=== PATIENT | male | born 1985 | race Caucasian/White ===

== ENCOUNTER 2020-07-19 09:51 | Outpatient (REF) | payer OTHER, SELFPAY ==
--- NOTE | 2020-07-19 09:55 | EMG_ITS ---
HISTORY OF PRESENT ILLNESS: This is a 35-year-old man with a history of bilateral hand pain and numbness with the right being worse than the left for several years. He is on no medications. PHYSICAL EXAMINATION: On examination, he is alert and oriented with normal intellectual functions. Cranial nerves II through XII are normal. Muscle tone and strength are normal in all 4 extremities. No Tinel or Phalen sign. IMPRESSION: Carpal tunnel syndrome. Nerve conduction EMG study: Moderate carpal tunnel syndrome bilaterally, slightly worse on the right. Mild ulnar nerve entrapment in the Guyon's canal on the left. Normal EMG of the right C5 through T1 innervated muscles. MD GABRIELA Marshall/LUPE / [id number]
== END 2020-07-19 09:52 | disposition home or self-care (01) ==
LOC: HO.NEURO 09:51
PROVIDERS: PCP Nurse Practitioner Family; Visit Provider Nurse Practitioner Family
DX: M25.531 Pain in right wrist (principal)
CPT/HCPCS: 95860; 95886; 95913

== ENCOUNTER 2022-09-20 08:59 | Outpatient (REF) | payer OTHER, SELFPAY ==
[2022-09-20 11:31] LABS: MANUAL DIFF FLAG NO
[2022-09-20 11:36] LABS: Appearance Urine Clear; Color Urine Yellow; Glucose Urine UA Negative (Negative); Leukocyte Esterase Urine Negative (Negative); Nitrite Urine Negative (Negative); Urine Blood Negative (Negative); Urine Ketones Negative (Negative); Urine Protein Negative (Neg-Trace)
[2022-09-20 11:46] LABS: Basophils Percent Auto 0.3 % (0-2); Eosinophils Percent Auto 0.5 % (0-4); Hemoglobin 15.4 g/dl (14.0-18.0); Imm Gran Abs Auto 0.01 X10*3/uL (0.00-0.03); Imm Gran Pct Auto 0.2 % (0.0-0.4); Lymphocytes Absolute Auto 1.9 X10*3/uL (1.2-4.9); Lymphocytes Percent Auto 33.4 % (20-40); Mean Corpuscular HGB Conc 34.2 g/dl (31.0-36.0); Mean Corpuscular Hemoglobin 29.2 pg (27.0-33.0); Mean Corpuscular Volume 85.2 fL (80.0-98.0); Mean Platelet Volume 10.9 fL (9.4-12.4); Monocytes Absolute Auto 0.4 X10*3/uL (0.1-1.2); Monocytes Percent Auto 6.6 % (2-11); Neutrophils Absolute Auto 3.4 x10*3/uL (2.0-8.3); Platelet Count 214 X10*3/uL (160-400); Red Blood Count 5.28 X10*6/uL (4.60-5.80); Red Cell Distribution Width 12.3 % (11.0-16.0); White Blood Count 5.8 X10*3/uL (4.8-10.8)
[2022-09-20 12:07] LABS: Alanine Aminotransferase 48 U/L (0-40); Albumin Level 4.5 g/dL (3.5-5.0); Alkaline Phosphatase 71 U/L (39-117); Anion Gap 11 (12-20); Aspartate Amino Transferase 28 U/L (5-37); Bilirubin Total 0.8 mg/dL (0.0-1.0); Blood Urea Nitrogen 19 mg/dL (9-16); Calcium 9.5 mg/dL (8.4-10.2); Carbon Dioxide 27 mmol/L (22-29); Chloride 104 mmol/L (96-108); Cholesterol 242 mg/dL; Estimated Glomerular Filt Rate > 60; Glucose Fasting 97 mg/dL (60-99); HDL Cholesterol 38 mg/dL; LDL Cholesterol Calculated 182 mg/dl; Potassium 4.6 mmol/L (3.3-5.1); Sodium 137 mmol/L (135-145); Total Protein 7.4 g/dL (6.5-8.0); Triglycerides 112 mg/dL
[2022-09-20 12:31] LABS: TSH reflex Free T4 1.92 uIU/mL (0.32-4.0)
== END 2022-09-20 09:00 | disposition home or self-care (01) ==
LOC: HO.HMGCLDS 08:59
PROVIDERS: PCP Nurse Practitioner Family; Visit Provider Nurse Practitioner Family
DX: I10 Essential (primary) hypertension (principal)
CPT/HCPCS: 36415; 80053; 80061; 81003; 84443; 85025

== ENCOUNTER 2022-10-14 08:17 | Outpatient (REF) | payer OTHER, SELFPAY ==
--- NOTE | ~2022-10-14 | US_ITS ---
EXAMINATION: US ABDOMEN COMPLETE CLINICAL INFORMATION: Abnormal levels of other serum enzymes. COMPARISON: None TECHNIQUE: Real-time imaging of the abdominal viscera. FINDINGS: PANCREAS: The pancreas is obscured by overlying gas. ABDOMINAL AORTA: The proximal, mid, and distal segments are normal in caliber. INFERIOR VENA CAVA: Visualized portions are normal. LIVER: The liver is normal in size. The liver contour is normal. The liver shows increased echogenicity. No focal hepatic lesion. There is no intrahepatic biliary duct dilatation seen. GALLBLADDER: Gallbladder wall thickness is 0.32 cm. The gallbladder is physiologically distended without evidence of stones, sludge, polyps, or pericholecystic fluid. COMMON BILE DUCT: Normal in caliber measuring 0.4 cm in diameter. RIGHT KIDNEY: Normal. No hydronephrosis. No renal calculi or focal parenchymal lesions. The kidney measures 11.5 cm in maximum dimension. LEFT KIDNEY: Normal. No hydronephrosis. No renal calculi or focal parenchymal lesions. The kidney measures 12.3 cm in maximum dimension. SPLEEN: Normal. The spleen measures 11.2 cm in maximum dimension. FREE FLUID: None. US/US abdomen complete IMPRESSION: Mild hepatic fatty infiltration. No focal lesion seen. The rest of the abdominal ultrasound is unremarkable.
== END 2022-10-14 08:18 | disposition home or self-care (01) ==
LOC: HO.HMGCX 08:17
PROVIDERS: PCP Nurse Practitioner Family; Visit Provider Nurse Practitioner Family
DX: R74.8 Abnormal levels of other serum enzymes (principal)
CPT/HCPCS: 76700

== ENCOUNTER 2023-02-19 08:01 | Outpatient (AMB) | payer OTHER, SELFPAY ==
--- NOTE | 2023-02-19 08:07 | A.OFFVIS_ITS ---
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 Patient complains of numbness while driving, fishing and prolong holding onto items. At times numbness disturbs his sleep. Hx of Right hand CTR January 2021. Patient would like to discuss surgery. Last injection was in 2015 and lasted 2-3 months. 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 He has a hx of right Carpal tunnel release in 2020 at an outside location, with good resolution of his symptoms. He complains of numbness in the left hand median nerve distribution. Symptoms intermittent, but daily, worse with activities such as driving or holding objects, and worse at night. He says he gets some intermittent numbness in the small finger of his left hand, but this is only occasional. His NCS from 2019 showed some ulnar nerve entrapment but no Cubital tunnel syndrome. 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 [facility] Medical History Carpal tunnel syndrome on both sides Cubital tunnel syndrome on left Hypertension Insomnia Major depressive disorder Surgical History History of elbow surgery Family History Father Diabetes mellitus Mother Thyroid disorder Social History Housing: House Alcohol intake: current Alcohol intake frequency: a few times a week Alcohol type: wine Patient Tobacco Use Status: Never used Tobacco e-Cigarette/Vaping Use: Never Used Second Hand Smoke Exposure: No service: Yes Current occupational status: employed Current occupation: [employer] / [employer] hand Current occupational exposures/hazards: Yes Cognitive needs: No Hearing needs: No Vision needs: Yes Review of Systems Const All systems reviewed & are unremarkable except as noted in HPI and below Physical Exam Vital Signs: BMI result Body Mass Index 32.8 Const General: cooperative, healthy appearing and no acute distress Orientation/consciousness: patient oriented x3 HEENT Head: Yes normocephalic and Yes atraumatic Eyes EOM: EOMs intact bilaterally Resp Effort & Inspection: normal respiratory effort and able to speak in complete sentences Cardio Jugular venous distension: no JVD Skin General skin exam: turgor normal Rashes: no rashes Neuro General: patient oriented x3 Extrem Other: Evaluation of Upper Extremity: The patient is alert, oriented, and in no acute distress Neuro: Median, Ulnar, Radial nerves motor and sensory intact and sensation is normal to the tips of all digits No thenar or intrinsic wasting Good APB muscle belly firing and good finger cross Vascular: Cap refill brisk ROM: He can make a fist and extend all his digits Skin: No lacerations or abrasions. General: No Ecchymosis. No Erythema or evidence of infection. Nerve Conduction Study: IMPRESSION:? Moderate carpal tunnel syndrome bilaterally, slightly worse on the right. ? Mild ulnar nerve entrapment in the Guyon's canal on the left. ? Normal EMG of the right C5 through T1 innervated muscles. Shabnam Nick MD 07/19/2020 Psych Appearance: grossly normal Affect: normal affect Attitude: cooperative Assessment & Plan Assessment & Plan (1) Carpal tunnel syndrome of left wrist: Code(s): G56.02 - Carpal tunnel syndrome, left upper limb Plan Assessment & Plan: 1. Left carpal tunnel syndrome, moderate Symptoms intermittent, but daily, worse with activity & at night I educated him about this condition I discussed treatment options The patient would like to proceed with surgery The risks and benefits of operative treatment were discussed with the patient and the patient wishes to proceed with surgery. These risks include, but are not limited to risk of damage to blood vessels, nerves, tendons, infection, recurrence, incomplete relief of preoperative symptoms, persistent pain, possible need for further surgery and the risks associated with regional blocks and anesthesia. The plan is to take the patient to the operating room sometime in the next few weeks for the following procedures: 1. Left carpal tunnel release, under local All of the preoperative paperwork including the consent was filled out today. All the patient's questions were answered. The patient understands that they will be contacted by our planner/scheduler soon to schedule this procedure He denies Diabetes, blood thinners, asthma, heart, lung, kidney issues If he does develop more problems with numbness and tingling in his left small finger I would likely consider a new nerve conduction study. 2. Right carpal tunnel syndrome, S/P release DOS: 2020 at an outside location With good resolution of his symptoms and normal sensation Scribed for Allie Alaniz MD by Eleazar Ponce, medical device sales representative, on 02/19/23 at 8:30 AM, EST. Coding Level of Care Code New Pt Level 4 (29889) Diagnoses Carpal tunnel syndrome of left wrist G56.02
[2023-02-19 08:12] VITALS: BMI 32.8
== END 2023-02-19 08:54 | disposition home or self-care (01) ==
PROVIDERS: PCP Nurse Practitioner Family; Visit Provider Orthopaedic Surgery
DX: G56.02 Carpal tunnel syndrome, left upper limb (principal)
CPT/HCPCS: 99204

== ENCOUNTER → 2023-02-19 08:01 | Outpatient (BNVA) | payer OTHER, SELFPAY | PROVIDERS: PCP Nurse Practitioner Family; Visit Provider Orthopaedic Surgery | DX: G56.03 Carpal tunnel syndrome, bilateral upper limbs (principal); G56.22 Lesion of ulnar nerve, left upper limb | CPT/HCPCS: 99202 ==

== ENCOUNTER 2023-03-31 07:48 | Day surgery (SDC) | payer OTHER, SELFPAY ==
[2023-03-31 08:05] VITALS: BP 150/84; PULSE 70; RESP 16; TEMP 36.6; O2SAT 98
[2023-03-31 08:11] VITALS: BMI 32.8
--- NOTE | 2023-03-31 09:50 | W.PM.OPN ---
Operative Note Operative Note Date of Service: 03/31/23 Narrative: Preop diagnosis: 1. left Carpal tunnel syndrome Postop diagnosis: same Procedure: 1. left Carpal tunnel release Surgeon: Allie Alaniz MD Anesthesia: local block using 1% lidocaine with epinephrine Findings: Thickened transverse carpal ligament. EBL: Less than 5 mL Specimens: None Complications: None Disposition: Brought to recovery room in stable condition Plan: Follow-up for 10-14 days for wound check and suture removal Indications: The patient is 38 years old, with left carpal tunnel syndrome that has been unresponsive to nonoperative management. The risks and benefits of operative treatment including but not limited to risk of damage to blood vessels, nerves, tendons, infection, persistent pain, persistent symptoms, or possible need for additional surgery were discussed with the patient and the patient wishes to proceed with surgery. Procedure: Once consent was obtained a local block was performed using a combination of 1% lidocaine with epinephrine. The patient was then brought back to the operating suite and placed on the operative table in supine position. The left upper extremity was prepped and draped in a standard surgical fashion. Once assured that we had a good block, a 2.0 cm longitudinal incision was made centered over the carpal tunnel. The incision was made through the skin to the subcutaneous tissues using a #15 blade. Dissection was made down to the level of the transverse carpal ligament with care being taken to protect the palmar cutaneous nerve. Once the transverse carpal ligament was clearly visualized, a longitudinal incision was made in the transverse carpal ligament 1st using a #15 blade, then using tenotomy scissors under direct visualization. Care was taken to look for and protect the motor branch of the median nerve when seen in this area. Once satisfied with our carpal tunnel release the wound was copiously irrigated with normal saline and hemostasis was obtained with a brief period of local pressure. The skin edges were reapproximated with some 5.0 nylon suture material and a sterile dressing was applied. The patient appears to have tolerated the procedure well and with no complications. All digits were well vascularized at the conclusion of the case.
--- NOTE | 2023-03-31 10:58 | MHC.SHP ---
Pre-Procedural Eval Section A Date of Service: 03/31/23 The patient is an INPATIENT: No Changes since office visit: No Cold of Flu in the past 2 weeks, No New Medical Problems, No Changes in Medication and No Patient answered all questions The History & Physical has been completed within 30 days and I have reviewed it.: Yes Section B Chief Complaint: Carpal tunnel syndrome, left upper limb Allergies: Allergies Allergy/AdvReac Type Severity Reaction Status Date / Time No Known Allergies Allergy Verified 03/31/23 08:03 Plan I have reviewed the history and physical and performed a pertinent physical examination on my patient. No changes have occurred unless specified. Time Spent With Patient Time: Total time managing care of this patient today ____ minutes.
== END 2023-03-31 11:19 | disposition home or self-care (01) ==
PROVIDERS: PCP Nurse Practitioner Family; Visit Provider Orthopaedic Surgery
PROC: (CPT 64721; principal; 2023-03-31 08:50)
DX: G56.02 Carpal tunnel syndrome, left upper limb (principal); R20.0 Anesthesia of skin; I10 Essential (primary) hypertension; F32.A Depression, unspecified; Z98.890 Other specified postprocedural states
CPT/HCPCS: 64721; J0171

== ENCOUNTER → 2023-03-31 07:48 | Outpatient (BNV) | payer OTHER, SELFPAY | PROVIDERS: PCP Nurse Practitioner Family; Visit Provider Orthopaedic Surgery | DX: G56.02 Carpal tunnel syndrome, left upper limb (principal) | CPT/HCPCS: 64721 ==

== ENCOUNTER 2023-04-15 14:29 | Outpatient (AMB) | payer OTHER, SELFPAY ==
--- NOTE | 2023-04-15 14:35 | MHC.OFFVIS ---
Intake Vital Signs 04/15/23 14:36 Height 5 ft 11 in Weight 235 lb BMI 32.8 Intake Visit Reasons: PO LT CTR 03/31/23AR Intake Note: Ben 38yr old male presents today for his P/O visit for is left CTR from 03/31/[address] Alaniz. States he is having mild numbness in his pinky. States he is able to sleep a better at night but some discomfort due to sutures. Sutures removed and steri strips applied. Allergies No Known Allergies Allergy (Verified 04/15/23 14:39) HPI PO LT CTR 03/31/23AR HPI Details Ben is a 38 year old right hand dominant man who presents S/P left carpal tunnel release, DOS: 03/31/23. He says he has some soreness about his incision site and this was causing some difficulty in sleeping. His sensation in the median nerve distribution has improved and is now normal, and he has good resolution of his nighttime symptoms. He has had a couple of episodes of left small finger numbness and tingling at night. He is not sure if the small finger was getting numb before surgery, as his whole hand felt like it was getting numb. 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 [facility] Medical History (Updated 02/19/23 @ 08:19 by Eleazar Ponce) Carpal tunnel syndrome on both sides Cubital tunnel syndrome on left Hypertension Insomnia Major depressive disorder Surgical History (Updated 03/31/23 @ 08:02 by Eleonora Murphy) H/O wrist surgery History of elbow surgery Family History Father Diabetes mellitus Mother Thyroid disorder Social History Housing: House Alcohol intake: current Alcohol intake frequency: a few times a month Alcohol type: wine Patient Tobacco Use Status: Never used Tobacco e-Cigarette/Vaping Use: Never Used Second Hand Smoke Exposure: No service: Yes Current occupational status: employed Current occupation: [employer] / rt hand Current occupational exposures/hazards: Yes Cognitive needs: No Hearing needs: No Vision needs: Yes Review of Systems Const All systems reviewed & are unremarkable except as noted in HPI and below Physical Exam Vital Signs: BMI result Body Mass Index 32.8 Const General: no acute distress and alert Orientation/consciousness: patient oriented x3 Neuro General: patient oriented x3 Extrem Other: The patient was alert oriented and in no acute distress The incision is healing well with no erythema drainage or evidence of infection. Sutures removed and Steri-Strips applied He can make a fist and extend all his digits Good ABduction & ADduction Sensation is normal in the median nerve distribution. Normal sensation to the small finger as well. Cap refill is brisk Nerve Conduction Study: IMPRESSION:? Moderate carpal tunnel syndrome bilaterally, slightly worse on the right. ? Mild ulnar nerve entrapment in the Guyon's canal on the left. ? Normal EMG of the right C5 through T1 innervated muscles. Shabnam Nick MD 07/19/2020 Psych Appearance: grossly normal Affect: normal affect Attitude: cooperative Assessment & Plan Assessment & Plan (1) Carpal tunnel syndrome of left wrist: Code(s): G56.02 - Carpal tunnel syndrome, left upper limb Plan Assessment & Plan: 1. Left carpal tunnel syndrome, S/P release DOS: 03/31/23 Pre-operative symptoms intermittent, but daily, worse with activity & at night Now with improving but not yet normal sensation, and good resolution of his nighttime symptoms The patient appears to be doing well post-operatively I educated him about the post-operative course I discussed activity modifications, he is to lift nothing heavier than a cellphone for the next two weeks He will perform gentle ROM exercises at home He should avoid any underwater activities for the next 5 days He should gently massage about the incision site to reduce the risk of hypersensitivity He was given a note for work restricting him to light duty, with a 2lb weight limit for the next 4 weeks He has to perform his physical fitness test 40 days after his current work restrictions finish. He can follow up prn 2. Left small finger numbness Intermittent and occasional, most occurs at night Mild ulnar nerve entrapment in Guyon's canal seen on NCS This may be exacerbated by some post-operative swelling If he continues to have numbness in the next 6-8 weeks he can follow up to discuss further evaluation and treatment 3. Right carpal tunnel syndrome, S/P release DOS: 2020 at an outside location With good resolution of his symptoms and normal sensation Scribed for Allie Alaniz MD by Eleazar Lubanszky, medical radiation therapist, on 04/15/23 at 2:45 PM, EST. Coding Level of Care Code Global (74032) Diagnoses Carpal tunnel syndrome of left wrist G56.02
[2023-04-15 14:36] VITALS: BMI 32.8
== END 2023-04-15 14:54 | disposition home or self-care (01) ==
PROVIDERS: PCP Nurse Practitioner Family; Visit Provider Orthopaedic Surgery
DX: G56.02 Carpal tunnel syndrome, left upper limb (principal)
CPT/HCPCS: 99024

== ENCOUNTER → 2023-04-15 14:29 | Outpatient (BNVA) | payer OTHER, SELFPAY | PROVIDERS: PCP Nurse Practitioner Family; Visit Provider Orthopaedic Surgery ==

== ENCOUNTER 2023-08-20 06:52 | Outpatient (REF) | payer OTHER, SELFPAY ==
[2023-08-20 11:34] LABS: MANUAL DIFF FLAG NO
[2023-08-20 11:36] LABS: Appearance Urine Clear; Color Urine Yellow; Glucose Urine UA Negative (Negative); Leukocyte Esterase Urine Negative (Negative); Nitrite Urine Negative (Negative); PH 6.5 (5.0-9.0); Urine Blood Negative (Negative); Urine Ketones Negative (Negative); Urine Protein Negative (Neg-Trace)
[2023-08-20 11:45] LABS: Basophils Percent Auto 0.4 % (0-2); Eosinophils Percent Auto 0.6 % (0-4); Hematocrit 44.1 % (42.0-52.0); Hemoglobin 14.9 g/dl (14.0-18.0); Imm Gran Abs Auto 0.02 X10*3/uL (0.00-0.03); Imm Gran Pct Auto 0.4 % (0.0-0.4); Lymphocytes Absolute Auto 2.2 X10*3/uL (1.2-4.9); Lymphocytes Percent Auto 40.8 % (20-40); Mean Corpuscular HGB Conc 33.8 g/dl (31.0-36.0); Mean Corpuscular Hemoglobin 29.2 pg (27.0-33.0); Mean Corpuscular Volume 86.3 fL (80.0-98.0); Mean Platelet Volume 10.2 fL (9.4-12.4); Monocytes Absolute Auto 0.4 X10*3/uL (0.1-1.2); Monocytes Percent Auto 6.5 % (2-11); Neutrophils Absolute Auto 2.8 x10*3/uL (2.0-8.3); Neutrophils Percent Auto 51.3 % (45-73); Platelet Count 216 X10*3/uL (160-400); Red Blood Count 5.11 X10*6/uL (4.60-5.80); Red Cell Distribution Width 12.7 % (11.0-16.0); White Blood Count 5.4 X10*3/uL (4.8-10.8)
[2023-08-20 12:14] LABS: Alanine Aminotransferase 85 U/L (0-40); Albumin Level 4.4 g/dL (3.5-5.0); Alkaline Phosphatase 71 U/L (39-117); Anion Gap 14 (12-20); Aspartate Amino Transferase 44 U/L (5-37); Bilirubin Total 0.3 mg/dL (0.0-1.0); Blood Urea Nitrogen 16 mg/dL (9-16); Calcium 9.7 mg/dL (8.4-10.2); Carbon Dioxide 26 mmol/L (22-29); Chloride 104 mmol/L (96-108); Cholesterol 265 mg/dL (<200); Estimated Glomerular Filt Rate > 60; Glucose Fasting 109 mg/dL (60-99); HDL Cholesterol 39 mg/dL (>40); LDL Cholesterol Calculated 195 mg/dL (<100); Potassium 4.9 mmol/L (3.3-5.1); Sodium 139 mmol/L (135-145); Total Protein 7.8 g/dL (6.5-8.0); Triglycerides 157 mg/dL (<150)
[2023-08-20 12:18] LABS: TSH reflex Free T4 1.75 uIU/mL (0.32-4.0)
== END 2023-08-20 06:53 | disposition home or self-care (01) ==
LOC: HO.HMGCLDS 06:52
PROVIDERS: PCP Nurse Practitioner Family; Visit Provider Nurse Practitioner Family
DX: I10 Essential (primary) hypertension (principal)
CPT/HCPCS: 36415; 80053; 80061; 81003; 84443; 85025

== ENCOUNTER 2023-08-21 08:59 | Outpatient (AMB) | payer OTHER, SELFPAY ==
--- NOTE | 2023-08-21 09:02 | MHC.PC.OV ---
Vital Signs 08/21/23 09:04 Height 5 ft 11 in Weight 246 lb BMI 34.3 BP 120/74 Blood Pressure Location Rt brachial Position Sitting Pulse 83 Pulse Source Pulse Oximeter Pulse Oximetry (%) 98 Oxygen Delivery Method Room Air Intake Visit Reasons: PE Intake Note: Patient here for physical exam. no new issues or concerns. Pt had labs done on 08/20/23. Allergies No Known Allergies Allergy (Verified 08/21/23 09:05) Medication List - Last Reconciled 08/21/23 by KADEN Galan amlodipine 2.5 mg PO DAILY atorvastatin 20 mg PO BEDTIME lisinopril 20 mg PO DAILY Tobacco use date assessed: 08/21/23 Dental Screening Dental Screen Date: 08/21/23 Did you have a dental visit in the last 12 months?: Yes Did you have a dental problem in the last 6 months where you did not have access to dental care?: No Was dental information given to patient?: Patient has dentist HPI PE HPI Details Pt is here for a PE. Labs were already performed. Pt's lipids were elevated. Will start atorvastatin 20mg. Will repeat labs in 2 months. [facility] Medical History Cubital tunnel syndrome on left Carpal tunnel syndrome on both sides Major depressive disorder Insomnia Hypertension Surgical History H/O wrist surgery History of elbow surgery Family History Father Diabetes mellitus Mother Thyroid disorder Social History Housing: House Alcohol intake: current Alcohol intake frequency: a few times a month Alcohol type: wine Patient Tobacco Use Status: Never used Tobacco e-Cigarette/Vaping Use: Never Used Second Hand Smoke Exposure: No service: Yes Current occupational status: employed Current occupation: [employer] / [employer] hand Current occupational exposures/hazards: Yes Cognitive needs: No Hearing needs: No Vision needs: Yes Questionnaire PHQ-9 Over the last 2 weeks, how often have you been bothered by any of the following problems? 1. Little interest or pleasure in doing things: not at all 2. Feeling down, depressed, or hopeless: not at all 3. Trouble falling or staying asleep, or sleeping too much: not at all 4. Feeling tired or having little energy: nearly every day 5. Poor appetite or overeating: not at all 6. Feeling bad about yourself - or that you are a failure or have let yourself or your family down: not at all 7. Trouble concentrating on things, such as reading the newspaper or watching television: not at all 8. Moving or speaking so slowly that other people could have noticed. Or the opposite - being so fidgety or restless that you have been moving around a lot more than usual: not at all 9. Thoughts that you would be better off or of hurting yourself in some way: not at all Total score: 3 Depression Screening Interpretation: Negative Depression Screening Done: Yes 47812 - PHQ-9 Billing: Yes Source: Developed by Drs. Ben Ospina, Leanna Siddiqi, Nic Batista and colleagues, with an educational jolynn from [employer]. Thrive Questionnaire Date Thrive assessed: 08/21/23 I am a: Patient What is your living situation today?: I have a steady place to live Within the past 12 months, did the food you bought not last and you didn't have the money to get more?: Never true Within the past 12 months, did you worry whether your food would run out before you got money to buy more?: Never true Do you have trouble paying for medicines?: No Do you have trouble getting transportation to medical appointments?: No Do you have trouble paying your heating and electricity bill?: No Do you have trouble taking care of your child, family member or friend?: No Do you have trouble with day-to-day activities such as bathing, preparing meals, shopping, managing finances, etc.?: No Are you currently unemployed and looking for a job?: No Are you interested in more education?: No AUDIT C Alcohol Use Questionnaire (AUDIT-C) 1. How often do you have a drink containing alcohol?: 2-4 times a month 2. How many drinks containing alcohol do you have on a typical day when you are drinking?: 1 or 2 3. How often do you have six or more drinks on one occasion?: Never Total Score: 2 Score Reviewed/Action Taken: No DEMETRICE-7 AMB Questionnaire DEMETRICE-7 Date DEMETRICE - 7 assessed: 08/21/23 Feeling nervous, anxious, or on edge: 0 = Not at all Not being able to stop or control worryin = Not at all Worrying too much about different things: 0 = Not at all Trouble relaxin = Several days Being so restless that it is hard to sit still: 1 = Several days Becoming easily annoyed or irritable: 1 = Several days Feeling afraid as if something awful might happen: 0 = Not at all Total DEMETRICE-7 score (0-4 normal; 5-9 mild; 10-14 moderate; 15-21 severe): 3 Source: Developed by Drs. Ben Ospina, Leanna Siddiqi, Nic Batista and colleagues, with an educational jolynn from [employer]. DEMETRICE-7 Assessment Billing DEMETRICE-7 Assessment Tool: DEMETRICE-7 Assessment 94362 Review of Systems Const Denies chills and Denies fever(s) Eyes Denies blurry vision ENT Denies vertigo, Denies dizziness and Denies sore throat Card Denies chest pain at rest, Denies chest pain with activity, Denies diaphoresis, Denies dyspnea and Denies dyspnea on exertion Resp Denies cough, Denies dyspnea, Denies dyspnea on exertion and Denies wheezing GI Denies abdominal pain, Denies melena, Denies hematochezia, Denies constipation, Denies diarrhea and Denies loose stools Denies hematuria Musc Denies numbness and Denies tingling Skin/Breast Denies lesions Neuro Denies vertigo, Denies dizziness, Denies numbness and Denies tingling Psych Denies anxiety, Denies depression, Denies homicidal ideation, Denies suicidal ideation and Denies other (substance abuse) Aller/Immun Denies wheezing Physical exam (Primary Care) Vital Signs: Last Vital Signs Pulse 83 08/21/23 09:04 BP 120/74 08/21/23 09:04 Pulse Ox 98 08/21/23 09:04 Oxygen Delivery Method Room Air 08/21/23 09:04 BMI result Body Mass Index 34.3 Tobacco/Smoking Status: Tobacco use Status Tobacco use date assessed 08/21/23 08/21/23 09:09 Patient Tobacco Use Status Never used Tobacco 08/21/23 09:06 e-Cigarette/Vaping Use Never Used 08/21/23 09:06 Depression Screening Interpretation: Negative Const General: cooperative Nutritional Appearance: obese Orientation/consciousness: patient oriented x3 HENMT Head: Yes normal to inspection, Yes normocephalic and Yes atraumatic Ears: TM's normal bilaterally Eyes General: appearance normal, both eyes and all related structures Alignment and Position: alignment normal and position normal Neck Neck: Yes normal visual inspection and Yes no lymphadenopathy Thyroid: Thyroid normal Resp Effort & Inspection: normal respiratory effort Auscultation: clear to auscultation bilaterally Cardio Rate: regular rate Rhythm: regular rhythm Heart sounds: S1 normal heart sound present, S2 normal heart sound present and no murmurs GI Palpation (GI): Soft to palpation and nontender Auscultation: normal bowel sounds Male General Exam: Yes normal external exam Penis: normal penis Scrotum: scrotum normal, testes descended bilaterally and no inguinal hernias Testes: no testicular mass Skin Rashes: no rashes Neuro General: patient oriented x3, moves all extremities, no focal motor deficits and deep tendon reflexes 2+ bilaterally Romberg Test: Negative Psych Appearance: grossly normal Mental Status: mental status grossly normal Speech and movement: Normal speech and movement present Affect: normal affect Attitude: cooperative Thought process: Normal thought process present Thought content: Normal thought content present Insight: Good insight present (Psych) Judgement: Good judgement present (Psych) Assessment and Plan Assessment & Plan (1) Dyslipidemia: Code(s): E78.5 - Hyperlipidemia, unspecified Plan: Starting atorvastatin, will repeat labs in 2 months (2) Physical exam: Code(s): Z00.00 - Encounter for general adult medical examination without abnormal findings Plan The patient agreed to the use of a medical services coordinator for this encounter. Scribed for KADEN Em by Kiki Carreon medical services coordinator, on 08/21/2023 at 09:15 EST. Medications: New atorvastatin 20 mg PO BEDTIME 90 tabs 2RF Coding Level of Care Code Est Pt Prev Care 18-39y(22183) Diagnoses Dyslipidemia E78.5 Physical exam Z00.00 Additional Codes DEMETRICE-7 Assessment Billing - DEMETRICE-7 Assessment Tool: DEMETRICE-7 Assessment 43914 ([id number])
[2023-08-21 09:04] VITALS: BP 120/74; PULSE 83; O2SAT 98; BMI 34.3
== END 2023-08-21 09:36 | disposition home or self-care (01) ==
PROVIDERS: PCP Nurse Practitioner Family; Visit Provider Nurse Practitioner Family
DX: E78.5 Hyperlipidemia, unspecified (principal); Z00.00 Encounter for general adult medical examination without abnormal findings
CPT/HCPCS: 99395

== ENCOUNTER 2025-04-08 08:30 | Outpatient (AMB) | payer OTHER, SELFPAY ==
[2025-04-08 08:48] VITALS: BP 124/76; PULSE 76; TEMP 36.7; O2SAT 98; BMI 32.1
--- NOTE | 2025-04-08 08:48 | MHC.OFFWIV ---
Intake Vital Signs 04/08/25 08:48 Height 5 ft 11 in Weight 230 lb BMI 32.1 BP 124/76 Blood Pressure Location Lt brachial Position Sitting Pulse 76 Pulse Source Pulse Oximeter Temp 98.0 F Temp Source Oral Pulse Oximetry (%) 98 Oxygen Delivery Method Room Air Intake Visit Reasons: ep bee sting on ankle/swollen and having reaction Intake Note: pt presents with right foot and ankle swelling, pain and itchiness after bee stings 2 days ago Patient Tobacco Use Status: Never used Tobacco Allergies No Known Allergies Allergy (Verified 04/08/25 08:50) Do you need a note to return to daycare/school/sports/work: No HPI HPI Comments History of Present Illness Details History of Present Illness - The patient is a 40-year-old male presenting with a bee sting reaction on his right foot. - The incident occurred approximately 48 hours prior to the visit when the patient accidentally stepped near a bee nest and was stung by two or three bees. - Historically, the patient does not react to bee stings, but this time experienced unusual symptoms. - Symptoms included a sensation of ears feeling funny, rory to being underwater, and a possible swollen tongue, though no respiratory distress was noted. - The patient self-administered Benadryl, which alleviated symptoms within 15 minutes. - The patient has been taking Benadryl consistently since the incident. - no trouble breathing reported, no feeling of throat closing or itching in the throat. - Pt has mult family members with bee allergy, is questioning how to be tested. Physical Exam General: Cooperative, healthy appearing, comfortable, no acute distress and well developed Orientation: Patient oriented x3 Limitations: No limitations Head: Normal to inspection Ears: Hearing grossly normal bilaterally, but patient reported ears felt funny and like underwater after bee sting Nose: Normal External nose present Face and sinus: Normal facial exam Eyes: Appearance normal, both eyes and all related structures Neck: Normal visual inspection and Yes full ROM, patient reported some neck symptoms after bee sting Respiratory: Normal respiratory effort and able to speak in complete sentences, Skin: right foot with edema,no erythema, no warmth, full ROM, NVI, pinpoint erythema on medial calcaneous. Neuro: Patient oriented x3 Extremities: Normal to inspection [facility] Medical History Cubital tunnel syndrome on left Carpal tunnel syndrome on both sides Major depressive disorder Insomnia Hypertension Surgical History H/O wrist surgery History of elbow surgery Family History Father Diabetes mellitus Mother Thyroid disorder Social History Housing: House Alcohol intake: current Alcohol intake frequency: a few times a month Alcohol type: wine Patient Tobacco Use Status: Never used Tobacco e-Cigarette/Vaping Use: Never Used Second Hand Smoke Exposure: No service: Yes Current occupational status: employed Current occupation: [employer] / [employer] Current occupational exposures/hazards: Yes Cognitive needs: No Hearing needs: No Vision needs: Yes Review of Systems Const All systems reviewed & are unremarkable except as noted in HPI and below Physical Exam Vital Signs: Last Vital Signs Temp 98.0 F 04/08/25 08:48 Pulse 76 04/08/25 08:48 BP 124/76 04/08/25 08:48 Pulse Ox 98 04/08/25 08:48 Oxygen Delivery Method Room Air 04/08/25 08:48 BMI result Body Mass Index 32.1 Assessment & Plan Assessment & Plan (1) Allergic reaction to bee sting: Code(s): T63.441A - Toxic effect of venom of bees, accidental (unintentional), initial encounter Plan: Patient was informed and verbally consented to the use of an ambient scribe for clinic note documentation during this visit. Bee Sting Reaction - Continue Benadryl as needed for symptom relief. - Add Pepcid to the regimen to block H2 receptors and reduce swelling. - Prescribe an EpiPen for emergency use in case of severe allergic reaction in the future. - Educate the patient on EpiPen usage and ensure understanding of when to use it. - Risk Of Cellulitis - Monitor for signs of infection such as increased redness, tenderness, or warmth. - Advise to return for antibiotics if symptoms of cellulitis develop. - Reach out to PCP re: allergy testing Medications: New epinephrine for 2 doses; call 911 0.3 mg (0.3 mL) IM Q15M PRN 2 ea 0RF anaphylaxis Coding Level of Care Code Est Pt Level 3 (00667) Diagnoses Allergic reaction to bee sting T63.441A
--- OUTSIDE RECORDS SUMMARY | 2025-04-08 09:17 | XMS_ITS | Continuity of Care Document ---
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 It does not include entries that were removed or entered in error. Problem Status Onset Date Problem Type Date of Resolution Comments Source ASSESSMENT, POST-DEPLOYMENT, DOCUMENTED ON TQ0060 Inactive 02/18/2020 Condition [facility] DERMATOPHYTOSIS ONYCHOMYCOSIS TOENAILS LEFT Active Condition [facility] DERMATOPHYTOSIS TINEA PEDIS Active Condition [facility] Medications Combined list of outpatient medications from Department of Defense and Veterans Affairs facilities.Medications provided include 1) outpatient medications from the last 15 months, and 2) patient-reported medications. Medication Details Route Status Patient Instructions Prescription Expires Prescription Number Last Dispense Date Ordering Provider Order Date Order Qty Source amoxicillin -clavulanat e 875 mg-125 mg oral tablet 0 total refill(s ) Ordered 2021 No Facilit y Access ibuprofen 600 mg oral tablet ibuprofe n 600 mg oral tablet Start Date: 12/19/20 Status: Ordered Repeat number: 1 Ordered 2021 No Facilit y Access oxyCODONE 5 mg oral tablet oxyCODON E 5 mg oral tablet Start Date: 12/19/20 Status: Ordered Repeat number: 1 Ordered 2021 No Facilit y Access predniSONE 20 mg oral tablet predniSO NE 20 mg oral tablet Start Date: 11/22/20 Status: Ordered Repeat number: 1 Ordered 2021 No Facilit y Access SARS-CoV-2 (COVID-19) mRNA BNT-162b2 vaccine 30 mcg/0.3 mL PF intramuscul ar suspension SARS-CoV -2 (COVID-1 9) mRNA BNT-162b 2 vaccine 30 mcg/0.3 mL PF intramus cular suspensi on Start Date: 06/24/21 Status: Ordered Repeat number: 1 Ordered 2021 No Facilit y Access Allergies, Adverse Reactions, Alerts Combined list of allergies from Department of Defense and Veterans Affairs facilities. It does not include entries that were removed or entered in error. Substance Category Reaction Severity Reaction type Status Date Reported Comments Source No Known Allergies Drug allergy (disorder) active 10/28/2018 [facility] Immunizations Combined list of available immunizations from the Department of Defense and Veterans Affairs facilities. Immunization Series Date Given Administered By Site Reaction Lot Number CVX Code Drug Ostrich Farmer Status Comments Source influenza virus vaccine, inactivated 2023 ELIJAHINDMADONNAILANA T Shoul aravind, left (delt oid) [id number] Cued, LensAR complet ed influenza virus vaccine, inactivat ed 06/13/24 Given [id number]-[id number] 04 MDG Influenza, injectable, quadrivalent, preservative free 0 2021 [id number] 150 Wedo [employer] (SKB) complet ed Influenza , injectabl e, quadrival ent, preservat jaqueline free DoD COVID Vaccine Pfizer 2020 TRS 208 PFIZER complet ed COVID Vaccine Pfizer 06/19/21 Given Ambulat ory Pharmac y COVID-19, mRNA, LNP-S, PF, 30 mcg/0.3 mL dose 2020 BOGDASARIAN, () Not Given COVID-19, mRNA, LNP-S, PF, 30 mcg/0.3 mL dose DoD SARS-COV-2 (COVID-19) vaccine, mRNA, spike protein, LNP, preservative free, 30 mcg/0.3mL dose 0 2020 Unknown, Provider TRS 208 [employer], Inc (PFR) complet ed SARS-COV- 2 (COVID-19 ) vaccine, mRNA, spike protein, LNP, preservat jaqueline free, 30 mcg/0.3mL dose DoD influenza, injectable, quadrivalent- pf 2020 [id number] 150 Ingen TechnologiesKli ne complet ed influenza , injectabl e, quadrival ent-pf 05/04/21 Given Ambulat ory Pharmac y Influenza, injectable, quadrivalent, preservative free 1 2020 [id number] 150 SmithMotwinine (SKB) complet ed Influenza , injectabl e, quadrival ent, preservat ajqueline free DoD COVID Vaccine Pfizer 2020 TRS 208 PFIZER complet ed COVID Vaccine Pfizer 04/19/21 Given Ambulat ory Pharmac y COVID-19, mRNA, LNP-S, PF, 30 mcg/0.3 mL dose 2020 [place] (PFR) Not Given COVID-19, mRNA, LNP-S, PF, 30 mcg/0.3 mL dose DoD SARS-COV-2 (COVID-19) vaccine, mRNA, spike protein, LNP, preservative free, 30 mcg/0.3mL dose 0 2020 Unknown, Provider TRS 208 [employer] Media (PFR) complet ed SARS-COV- 2 (COVID-19 ) vaccine, mRNA, spike protein, LNP, preservat jaqueline free, 30 mcg/0.3mL dose DoD influenza, injectable, quadrivalent- pf 2019 [id number] 150 Seqirus complet ed influenza , injectabl e, quadrival ent-pf 06/20/20 Given Ambulat ory Pharmac y Influenza, injectable, quadrivalent, preservative free 1 2019 [id number] 150 Seqirus (SEQ) complet ed Influenza , injectabl e, quadrival ent, preservat jaqueline free DoD anthrax vaccine 2019 [id number] Emergent Biosolutions complet ed anthrax vaccine 12/24/19 Given Ambulat ory Pharmac y anthrax vaccine 3 2019 [id number] 24 Emergent [employer] Lyman ([facility]) complet ed anthrax vaccine DoD anthrax vaccine 2018 [id number] [employer] complet ed anthrax vaccine 07/16/19 Given Ambulat ory Pharmac y measles/mumps /rubella virus vaccine 2018 [id number] Merck & Company Inc complet ed measles/m umps/rube lla virus vaccine 07/16/19 Given Ambulat ory Pharmac y measles, mumps and rubella virus vaccine 2 2018 [id number] Merck (MSD) complet ed measles, mumps and rubella virus vaccine DoD anthrax vaccine 2 2018 [id number] [employer] Lyman ([facility]) complet ed anthrax vaccine DoD typhoid Vi capsular polysaccharid e vac 2018 [id number] sanofi pasteur complet ed typhoid Vi capsular polysacch aride vac 05/21/19 Given Ambulat ory Pharmac y measles/mumps /rubella virus vaccine 2018 [id number] 03 Merck & Company Inc complet ed measles/m umps/rube lla virus vaccine 05/21/19 Given Ambulat ory Pharmac y influenza, injectable, quadrivalent- pf 2018 [id number] 150 Seqirus complet ed influenza , injectabl e, quadrival ent-pf 05/21/19 Given Ambulat ory Pharmac y measles, mumps and rubella virus vaccine 1 2018 [id number] 03 Merck (MSD) complet ed measles, mumps and rubella virus vaccine DoD typhoid Vi capsular polysaccharid e vaccine 1 2018 [id number] Sanofi Pasteur ([facility]) complet ed typhoid Vi capsular polysacch aride vaccine DoD Influenza, injectable, quadrivalent, preservative free 1 2018 [id number] 150 Seqirus (SEQ) complet ed Influenza , injectabl e, quadrival ent, preservat jaqueline free DoD influenza, injectable, quadrivalent 2017 [id number] 158 Seqirus complet ed influenza , injectabl e, quadrival ent 06/11/18 Given Ambulat ory Pharmac y influenza, injectable, quadrivalent, contains preservative 1 2017 [id number] 158 Seqirus (SEQ) comple t ed influenza , injectabl e, quadrival ent, contains preservat jaqueline DoD Influenza, inj, MDCK, quadrivalent- pf 2016 [id number] 171 Seqirus complet ed Influenza , inj, MDCK, quadrival ent-pf 06/15/17 Given Ambulat ory Pharmac y Influenza, injectable, Madin Bronwyn Canine Kidney, preservative free, quadrivalent 16 2016 [id number] 171 Seqirus (SEQ) comple t ed Influenza , injectabl e, Madin [place] Canine Kidney, preservat jaqueline free, quadrival ent DoD tetanus, diphtheria, acellular pertu is 2016 115 sanofi pasteur complet ed tetanus, diphtheri a, acellular pertussis 09/28/16 Given Ambulat ory Pharmac y tetanus toxoid, reduced diphtheria toxoid, and acellular pertu is vaccine, adsorbed 0 2016 115 Sanofi Pasteur ([facility]) complet ed tetanus toxoid, reduced diphtheri a toxoid, and acellular pertussis vaccine, adsorbed DoD influenza, seasonal, injectable-pf 2015 [id number] 140 Seqirus complet ed influenza , seasonal, injectabl e-pf 06/15/16 Given Ambulat ory Pharmac y Influenza, seasonal, injectable, preservative free 1 2015 [id number] 140 Seqirus (SEQ) comple t ed Influenza , seasonal, injectabl e, preservat jaqueline free DoD influenza, live, intranasal,qu adrivalent 2014 [id number] 149 Medimmune Inc comple t ed influenza , live, intranasa l,quadriv alent 06/17/15 Given Ambulat ory Pharmac y influenza, live, intranasal, quadrivalent 14 2014 [id number] 149 [employer] (MED) complet ed influenza , live, intranasa l, quadrival ent DoD influenza, seasonal, injectable 2013 [id number] 141 ID Biomedical comple t ed influenza , seasonal, injectabl e 05/14/14 Given Ambulat ory Pharmac y Influenza, seasonal, injectable 1 2013 [id number] 141 (IDB) complet ed Influenza , seasonal, injectabl e DoD influenza, seasonal, injectable 2012 [id number] 141 CSL Behring complet ed influenza , seasonal, injectabl e 06/12/13 Given Ambulat ory Pharmac y Influenza, seasonal, injectable 1 2012 [id number] 141 CS Biotherapies, Inc. (CSL) complet ed Influenza , seasonal, injectabl e DoD influenza, seasonal, injectable 2012 [id number] [id number] 141 CSL Behring complet ed influenza , seasonal, injectabl e 09/20/12 Given Ambulat ory Pharmac y tetanus, diphtheria, acellular pertu is 2012 [id number] 115 sanofi pasteur complet ed tetanus, diphtheri a, acellular pertussis 09/20/12 Given Ambulat ory Pharmac y tetanus toxoid, reduced diphtheria toxoid, and acellular pertu is vaccine, adsorbed 0 2012 [id number] 115 Sanofi Pasteur (PMC) complet ed tetanus toxoid, reduced diphtheri a toxoid, and acellular pertussis vaccine, adsorbed DoD Influenza, seasonal, injectable 11 2012 [id number] 141 CS [employer]otherapies, Inc. (CSL) complet ed Influenza , seasonal, injectabl e DoD Td (adult)-PF 2011 [id number] 113 sanofi pasteur complet ed Td (adult)-P F 11/23/11 Given Ambulat ory Pharmac y typhoid Vi capsular polysaccharid e vac 2011 [id number] 101 sanofi pasteur complet ed typhoid Vi capsular polysacch aride vac 11/23/11 Given Ambulat ory Pharmac y anthrax vaccine 2011 [id number] Emergent Biosolutions complet ed anthrax vaccine 11/23/11 Given Ambulat ory Pharmac y anthrax vaccine 1 2011 [id number] [employer]gent [employer] Lyman ([facility]) complet ed anthrax vaccine DoD typhoid Vi capsular polysaccharid e vaccine 1 2011 [id number] 101 Sanofi Pasteur ([facility]) complet ed typhoid Vi capsular polysacch aride vaccine DoD tetanus and diphtheria toxoids, adsorbed, preservative free, for adult use (5 Lf of tetanus toxoid and 2 Lf of diphtheria toxoid) 1 2011 [id number] 113 Sanofi Pasteur ([facility]) complet ed tetanus and diphtheri a toxoids, adsorbed, preservat jaqueline free, for adult use (5 Lf of tetanus toxoid and 2 Lf of diphtheri a toxoid) DoD influenza, seasonal, injectable 2010 [id number] 141 sanofi pasteur complet ed influenza , seasonal, injectabl e 07/13/11 Given Ambulat ory Pharmac y Influenza, seasonal, injectable 0 2010 [id number] 141 Sanofi Pasteur ([facility]) complet ed Influenza , seasonal, injectabl e DoD influenza virus vaccine, live 2009 [id number] 111 Gurnard Perch [employer] Inc comple t ed influenza virus vaccine, live 06/14/10 Given Ambulat ory Pharmac y influenza virus vaccine, live, attenuated, for intranasal use 1 2009 [id number] 111 [employer], Inc. (MED) complet ed influenza virus vaccine, live, attenuate d, for intranasa l use DoD rabies vaccine, IM 2009 175 complet ed rabies vaccine, IM 03/07/10 Given Ambulat ory Pharmac y rabies vaccine, for intramuscular injection RETIRED CODE 4 2009 18 () complet ed rabies vaccine, for intramusc ular injection RETIRED CODE DoD rabies vaccine, IM 2009 175 complet ed rabies vaccine, IM 02/27/10 Given Ambulat ory Pharmac y rabies vaccine, for intramuscular injection RETIRED CODE 3 2009 18 () complet ed rabies vaccine, for intramusc ular injection RETIRED CODE DoD rabies vaccine, IM 2009 175 complet ed rabies vaccine, IM 02/22/10 Given Ambulat ory Pharmac y rabies vaccine, for intramuscular injection RETIRED CODE 2 2009 18 () complet ed rabies vaccine, for intramusc ular injection RETIRED CODE DoD rabies immune globulin 2009 34 complet ed rabies immune globulin 02/19/10 Given Ambulat ory Pharmac y rabies vaccine, IM 2009 175 complet ed rabies vaccine, IM 02/19/10 Given Ambulat ory Pharmac y rabies vaccine, for intramuscular injection RETIRED CODE 1 2009 18 () complet ed rabies vaccine, for intramusc ular injection RETIRED CODE DoD rabies immune globulin 1 2009 34 () complet ed rabies immune globulin DoD Novel influenza-H1N 1-09, injectable 2009 127 complet ed Novel influenza -A1Q6-60, injectabl e 11/17/09 Given Ambulat ory Pharmac y Novel influenza-H1N 1-09, injectable 1 2009 127 () complet ed Novel influenza -V3V7-83, injectabl e [facility] influenza virus vaccine, live 2008 [id number] 111 Gurnard Perch [employer] Inc comple t ed influenza virus vaccine, live 05/13/09 Given Ambulat ory Pharmac y influenza virus vaccine, live, attenuated, for intranasal use 1 2008 [id number] 111 [employer]. (MED) complet ed influenza virus vaccine, live, attenuate d, for intranasa l use DoD influenza virus vaccine,split 2008 [id number] 15 sanofi pasteur complet ed influenza virus vaccine,s plit 10/15/08 Given Ambulat ory Pharmac y influenza virus vaccine, split virus (incl. purified surface antigen)-reti red CODE 1 2008 [id number] 15 Sanofi Pasteur (PMC) complet ed influenza virus vaccine, split virus (incl. purified surface antigen)- retired CODE [facility] influenza virus vaccine, live 2006 [id number] 111 Gurnard Perch [employer] [facility] influenza virus vaccine, live 07/12/07 Given Ambulat ory Pharmac y influenza virus vaccine, live, attenuated, for intranasal use 1 2006 [id number] 111 [employer]. (MED) complet ed influenza virus vaccine, live, attenuate d, for intranasa l use DoD influenza virus vaccine,split 2006 [id number] 15 sanofi pasteur complet ed influenza virus vaccine,s plit 09/13/06 Given Ambulat ory Pharmac y influenza virus vaccine, split virus (incl. purified surface antigen)-reti red CODE 1 2006 [id number] 15 Sanofi Pasteur ([facility]) complet ed influenza virus vaccine, split virus (incl. purified surface antigen)- retired CODE DoD vaccinia (smallpox) vaccine 2005 [id number] [employer] complet ed vaccinia (smallpox ) vaccine 10/16/05 Given Ambulat ory Pharmac y vaccinia (smallpox) vaccine 1 2005 [id number] 75 [facility] ([facility]) complet ed vaccinia (smallpox ) vaccine DoD typhoid Vi capsular polysaccharid e vac 2005 [id number] 101 sanofi pasteur complet ed typhoid Vi capsular polysacch aride vac 09/15/05 Given Ambulat ory Pharmac y typhoid Vi capsular polysaccharid e vaccine 1 2005 [id number] 101 Sanofi Pasteur ([facility]) complet ed typhoid Vi capsular polysacch aride vaccine DoD influenza virus vaccine,split 2005 [id number] 15 sanofi pasteur complet ed influenza virus vaccine,s plit 08/18/05 Given Ambulat ory Pharmac y influenza virus vaccine, split virus (incl. purified surface antigen)-reti red CODE 1 2005 [id number] 15 Sanofi Pasteur ([facility]) complet ed influenza virus vaccine, split virus (incl. purified surface antigen)- retired CODE DoD influenza virus vaccine, live 2004 [id number] 111 Gurnard Perch [employer] [facility] t ed influenza virus vaccine, live 08/18/04 Given Ambulat ory Pharmac y influenza virus vaccine, live, attenuated, for intranasal use 0 2004 [id number] 111 [employer]. (MED) complet ed influenza virus vaccine, live, attenuate d, for intranasa l use DoD hepatitis A adult vaccine 2003 [id number] 52 Merck & Company Inc complet ed hepatitis A adult vaccine 10/15/03 Given Ambulat ory Pharmac y hepatitis A vaccine, adult dosage 2 2003 [id number] 52 Merck (MSD) complet ed hepatitis A vaccine, adult dosage DoD tuberculin purified protein derivative 2003 [id number] sanofi pasteur complet ed tuberculi n purified protein derivativ e 09/17/03 Given Ambulat ory Pharmac y typhoid Vi capsular polysaccharid e vac 2003 [id number] 101 sanofi pasteur complet ed typhoid Vi capsular polysacch aride vac 09/17/03 Given Ambulat ory Pharmac y influenza virus vaccine, whole virus 2003 [id number] 16 [employer] [facility] complet ed influenza virus vaccine, whole virus 09/17/03 Given Ambulat ory Pharmac y influenza virus vaccine, whole virus 0 2003 [id number] 16 [facility] ([facility]) complet ed influenza virus vaccine, whole virus DoD typhoid Vi capsular polysaccharid e vaccine 0 2003 [id number] 101 Sanofi Pasteur ([facility]) complet ed typhoid Vi capsular polysacch aride vaccine DoD hepatitis A adult vaccine 2002 [id number] 52 Merck & Company Inc complet ed hepatitis A adult vaccine 09/24/02 Given Ambulat ory Pharmac y measles, mumps and rubella virus vaccine 0 2002 03 () Not Given measles, mumps and rubella virus vaccine DoD varicella virus vaccine 1 2002 21 () Not Given varicella virus vaccine DoD hepatitis B vaccine, adult dosage 1 2002 43 () Not Given hepatitis B vaccine, adult dosage DoD hepatitis A vaccine, adult dosage 1 2002 [id number] 52 Merck (MSD) complet ed hepatitis A vaccine, adult dosage DoD tuberculin purified protein derivative 2002 [id number] 96 sanofi pasteur complet ed tuberculi n purified protein derivativ e 09/17/02 Given Ambulat ory Pharmac y poliovirus vaccine, inactivated 2002 [id number] 10 sanofi pasteur complet ed polioviru s vaccine, inactivat ed 09/17/02 Given Ambulat ory Pharmac y meningococcal polysaccharid e (MPSV4) 2002 [id number] 32 sanofi pasteur complet ed meningoco ccal polysacch aride (MPSV4) 09/17/02 Given Ambulat ory Pharmac y influenza virus vaccine, whole virus 2002 [id number] 16 sanofi pasteur complet ed influenza virus vaccine, whole virus 09/17/02 Given Ambulat ory Pharmac y tetanus-dipht h toxoids (Td) adult/adol 2002 [id number] 09 sanofi pasteur complet ed tetanus-d iphth toxoids (Td) adult/ado l 09/17/02 Given Ambulat ory Pharmac y tetanus and diphtheria toxoids, adsorbed, preservative free, for adult use (2 Lf of tetanus toxoid and 2 Lf of diphtheria toxoid) 0 2002 [id number] 09 Sanofi Pasteur (PMC) complet ed tetanus and diphtheri a toxoids, adsorbed, preservat jaqueline free, for adult use (2 Lf of tetanus toxoid and 2 Lf of diphtheri a toxoid) DoD poliovirus vaccine, inactivated 0 2002 [id number] 10 Sanofi Pasteur (PMC) complet ed polioviru s vaccine, inactivat ed DoD influenza virus vaccine, whole virus 0 2002 [id number] 16 Sanofi Pasteur (PMC) complet ed influenza virus vaccine, whole virus DoD meningococcal polysaccharid e vaccine (MPSV4) 0 2002 [id number] 32 Sanofi Pasteur (PMC) complet ed meningoco ccal polysacch aride vaccine (MPSV4) DoD Results Combined list of recent chemistry, hematology and other laboratory results from Department of Defense and Veterans Affairs, ranging from 15 months to all on record, depending upon the facility. Order Name Results Value Reference Range Date Interpretation Specimen Comments Source Infectiou s Disease HIV-1/O/2 Non-Reac tive 1 (11/14/24 10:05 AM) 11/14 N Interpretiv e Data: INTERPRETAT ION: This method is a screening procedure for the detection of HIV p24 Antigen and Antibodies to HIV-1, including Group O, and/or HIV-2. NON-REACTIV E: HIV-1 antigen and HIV-1 / HIV-2 antibodies were not detected. No laboratory evidence of HIV infection. A negative test result does not exclude the possibility of exposure to or infection with HIV. HIV antibodies and/or p24 antigen may be undetectabl e in some stages of the infection and in some clinical conditions. If acute HIV infection is suspected, consider submitting another specimen to a reference laboratory for HIV-1 RNA. SCREEN REACTIVE - CONFIRMATIO N TO FOLLOW: Possible presence of HIV-1antibo dies, HIV-2 antibodies and/or HIV-1 p24 antigen. Specimen will reflex to the confirmatio n testing that fulfills the Center for Disease Control and Prevention' s HIV diagnostic algorithm. Refer to [facility] Lab Guide for additional information : [email or web address] x Testing performed by Claudia dyer. [address] [employer] EPILAB Miscellan eous Sendouts Repository Sample Received (11/14/24 10:05 AM) 11/14 N [address] Friend [employer] EPILAB Vital Signs Combined list of inpatient and outpatient Vital Signs from Department of Defense and Veterans Affairs, ranging from 12 months to all on record, depending upon the facility. Vital Sign Value Date Comments Source Mean Arterial Pressure, Cuff (Calc) 107 mm[Hg] 10/26/2023 13:59:00 8203R-104 MD G Systolic Blood Pressure 145 mm[Hg] 10/26/2023 13:59:00 8203R-104 MDG Diastolic Blood Pressure 88 mm[Hg] 10/26/2023 13:59:00 8203R-104 MDG BP Site Left arm 10/26/2023 13:59:00 8203R -104 MDG Peripheral Pulse Rate 68 bpm 10/26/2023 13:59:00 8203R-104 MDG Encounters Combined list of: 1) Encounters from Department of Veterans Affairs facilities going backup to the last 18 months, not all VA inpatient encounters are included; 2) Encounters from the Department of Defense facilities going backup to 280 months. Location Location Details Encounter Type Encounter Number Reason For Visit Attending Provider ADM Date DC Date Status Disposition Source [facility] [place] [facility]) OUTPATIENT [id number] toe MARIANA Colvin 02/26 Released w/o Limitations [facility] [address](AFN G 104 Med Sq-FM) OUTPATIENT [id number] Notes Entered by: TEGAN CHENG 16 Jan 2017 1406 ------- ------- ------- ------- -- Tri Service NICHOLAS FABIAN 01/16 [facility] [place] [place] [address](A FNG 104 Med Sq-FM) [place] [address](N G 104 Med Sq-FM) OUTPATIENT [id number] Notes Entered by: REBECCA LLANES 17 Apr 2018 1048 ------- ------- ------- ------- -- TriServ ice CLAUDINE KIRK 04/17 [facility]itations [facility] [place] [address](A G 104 Med Sq-FM) [place] [id number]([place] 104 Med Sq-FM) OUTPATIENT [id number] Notes Entered by: MUKUND MORSE 16 Apr 2019 1328 ------- ------- ------- ------- -- [employer] ice MUKUND DAVIS 04/16 [facility]ased w/o Limitations [facility] [place] [address](A FNG 104 Med Sq-FM) [facility] [address](AF G 104 Med Sq-FM) OUTPATIENT [id number] Notes Entered by: BITA SAWANT 21 May 2019 1220 ------- ------- ------- ------- -- Predepl BITA Aguirre 05/21 Released w/o Limitations [facility] [place] [address](A FNG 104 Med Sq-FM) [facility] Facility OUTPATIENT [id number] Theater Provider 02/17 Released w/o Limitations Theater Facilit [facility] [address](AFN G 104 Med Sq-FM) OUTPATIENT [id number] Notes Entered by: BITA SAWANT 29 Mar 2020 1051 ------- ------- ------- ------- -- post-lyons f/u BITA SAWANT 03/29 Released w/o Limitations [facility] [place] [address](A FNG 104 Med Sq-FM) [facility] [address](AFN G 104 Med Sq-FM) OUTPATIENT [id number] Notes Entered by: BITA SAWANT 07 Sep 2020 1453 ------- ------- ------- ------- -- PATRIZIA3 BITA SAWANT 09/07 Released w/o Limitations [facility] [place] [address](A FNG 104 Med Sq-FM) [facility] [address](AFN G 104 Med Sq-FM) OUTPATIENT [id number] 1 BITA SAWANT 10/17 Released w/o Limitations [facility] [place] [address](A FNG 104 Med Sq-FM) [facility] [address](AFN G 104 Med Sq-FM) OUTPATIENT [id number] Notes Entered by: JACQUELYN TRACEY 14 Dec 2020 1816 ------- ------- ------- ------- -- BITA STEIN 12/14 Released w/o Limitations [facility] [place] [address](A FNG 104 Med Sq-FM) [place] [facility] [address](AFN G 104 Med Sq-FM) OUTPATIENT [id number] Notes Entered by: JOHANA SALAZAR 19 Oct 2021 0952 ------- ------- ------- ------- -- Audiogr am/PHA/ DRHA1 STEPHANIE JACOB 10/19 Released w/o Limitations [facility] [place] [address](A FNG 104 Med Sq-FM) [facility] [address](AFN G 104 Med Sq-FM) OUTPATIENT [id number] Notes Entered by: BITA SAWANT 10 Oct 2022 1531 ------- ------- ------- ------- -- Occ Med/PHA Q BITA SAWANT 10/10 Released w/o Limitations [facility] [place] [address](A FNG 104 Med Sq-FM) 8203R-104 MDG Mass Vaccine [id number] 06/13 Discharge Disposition: Home or Self Care 8203R-1 04 MDG 8203R-104 MDG Mass Vaccine [id number] 06/15 8203R-1 04 MDG 8203R-104 MDG Outpatient [id number] MIKE DIAMOND 11/14 Discharge Disposition: Home or Self Care 8203R-1 04 MDG Farrah Colindres Between Visit 11/14 Discharge Disposition: Home or Self Care Farrah Colindres 8203R-104 MDG Care Not Rendered [id number] 02/16 Discharge Disposition: Home or Self Care 8203R-1 04 MDG Procedures Combined list of: 1) Procedures from Department of Veterans Affairs facilities going back up to thelast 18 months, not all VA non-surgical procedures are included; 2) All procedures from the Department of Defense facilities. Procedure Procedure Type Code Date Perfomer Mercedes Sourc e No data available for this section Ambulatory [facility]acy IMMUNIZATION ADMINISTRATION (INCLUDES PERCUTANEOUS, INTRADERMAL, SUBCUTANEOUS, OR INTRAMUSCULAR INJECTIONS); 1 VACCINE (SINGLE OR COMBINATION VACCINE/TOXOID) 03/07/2010 [facility] IMMUNIZATION ADMINISTRATION (INCLUDES PERCUTANEOUS, INTRADERMAL, SUBCUTANEOUS, OR INTRAMUSCULAR INJECTIONS); 1 VACCINE (SINGLE OR COMBINATION VACCINE/TOXOID) 02/27/2010 [facility] IMMUNIZATION ADMINISTRATION (INCLUDES PERCUTANEOUS, INTRADERMAL, SUBCUTANEOUS, OR INTRAMUSCULAR INJECTIONS); 1 VACCINE (SINGLE OR COMBINATION VACCINE/TOXOID) 02/22/2010 [facility] RABIES VACCINE, FOR INTRAMUSCULAR USE 02/18/2010 [facility] Social History Combined list of available smoking, tobacco, and other social history from Department of Defense and Veterans Affairs facilities. Social History Type Response Date Comment Sour e Sex Representation Male (finding) 11/15/2021 Un known Organization Sexual Orientation Ambula tory Pharmacy Gender identity Ambulator y Pharmacy This section is an empty social history section. DoD Assessment and Plan Combined list of future care activities from Department of Defense and Veterans Affairs facilities (e.g., assessment and plan notes, appointments, orders, and referrals). Additional future care activities may be listed in the Plan of Care section. Result Assessment and Plan Date Source Assessment and Plan Extracted from:Title : Annual EOD Physical / PHA Author: STEPHANIE JACOB Date: 11/14/24 39 y/o M non flyer here for EOD Physical. No medically disqualifying conditions. Member is medically clear. The following documents were reviewed: EOD medical history questionnaire: recovered from vision loss in right eye, intermittent headaches, intermittent hand/foot numbness Audiogram: H1 04/08/2025 8203R-104 MDG Functional Status Combined list of recent functional and cognitive assessments recorded at Department of Defense and Veterans Affairs (VA).VA Functional Kinney Measurement (FIM) Scale: 1 = Total Assistance (Subject = 0% +), 2 = Maximal Assistance (Subject = 25% +), 3 = Moderate Assistance (Subject = 50% +), 4 = Minimal Assistance (Subject = 75% +), 5 = Supervision, 6 = Modified Kinney (Device), 7 = Complete Kinney (Timely, Safely). Assessment Date/Time Source Assessment Type Assessment Skill Assessment Score Assessment Details No data available for this section
== END 2025-04-08 09:30 | disposition home or self-care (01) ==
PROVIDERS: PCP Nurse Practitioner Family; Visit Provider Physician Assistant
DX: T63.441A Toxic effect of venom of bees, accidental (unintentional), initial encounter (principal)

== ENCOUNTER → 2025-04-08 08:30 | Outpatient (BNVA) | payer OTHER, SELFPAY | PROVIDERS: PCP Nurse Practitioner Family; Visit Provider Physician Assistant | DX: T63.441A Toxic effect of venom of bees, accidental (unintentional), initial encounter (principal) | CPT/HCPCS: 99212 ==

== ENCOUNTER 2025-05-13 07:55 | Outpatient (AMB) | payer OTHER, SELFPAY ==
--- NOTE | 2025-05-13 07:56 | MHC.OFFWIV ---
Intake Vital Signs 05/13/25 07:57 Height 5 ft 11 in Weight 230 lb BMI 32.1 BP 112/70 Blood Pressure Location Lt brachial Position Sitting Respiration 15 Pulse 61 Pulse Source Pulse Oximeter Temp 97.5 F Temp Source Oral Pulse Oximetry (%) 98 Oxygen Delivery Method Room Air Intake Visit Reasons: ep right elbow pain Intake Note: Pt is here today c/o Rt elbow pain due to PT Patient Tobacco Use Status: Never used Tobacco Allergies No Known Allergies Allergy (Verified 04/08/25 08:50) HPI HPI Comments History of Present Illness Details This is a 40-year-old lvskz-vwsx-evztkcgr male presenting for evaluation of right elbow pain and right bicep weakness. Patient states in 2011 he had an injury of his right upper extremity requiring surgical intervention at the area of his right distal biceps and right antecubital fossa. Patient states after performing his physical therapy test in March 2025 he has had increased weakness in his right bicep and right medial elbow when carrying or picking up items. Patient states during the most recent PT test, he had to carry a 50lb sand bag and perform maneuvers which resulted in right bicep pain. Patient has taken ibuprofen only intermittently but is concerned that this may become a more chronic issue. 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 Current occupational exposures/hazards: Yes Cognitive needs: No Hearing needs: No Vision needs: Yes Review of Systems Const All systems reviewed & are unremarkable except as noted in HPI and below Denies body aches, Denies chills and Denies fever(s) Eyes Reports no additional complaints ENT Reports no additional complaints Card Reports no additional complaints Resp Reports no additional complaints GI Reports no additional complaints Reports no additional complaints Musc Reports arthralgias, Denies joint swelling, Reports muscle weakness, Denies numbness, Denies stiffness and Denies tingling Skin/Breast Reports system reviewed and no additional complaints, except as documented Neuro Denies focal weakness, Denies numbness and Denies tingling Psych Reports no additional complaints Endo Reports no additional complaints Bryan/Lymph Reports no additional complaints Aller/Immun Reports no additional complaints Physical Exam Vital Signs: Last Vital Signs Temp 97.5 F 05/13/25 07:57 Pulse 61 05/13/25 07:57 Resp 15 05/13/25 07:57 BP 112/70 05/13/25 07:57 Pulse Ox 98 05/13/25 07:57 Oxygen Delivery Method Room Air 05/13/25 07:57 BMI result Body Mass Index 32.1 Const General: cooperative, healthy appearing, comfortable, no acute distress, well developed, alert, awake, Physically active and ill appearing; No acute distress or in distress Nutritional Appearance: average body habitus Orientation/consciousness: patient oriented x3 Limitations: no limitations Skin General skin exam: no rashes or lesions noted Neuro General: patient oriented x3, gait normal, tone normal and moves all extremities Motor exam (neuro): 5/5 motor strength present throughout, no tremor noted and Normal motor muscle tone present throughout Extrem Right upper extremity: normal to inspection, full ROM (full extension at right olecranon, remote sensing program manager strength equal bilaterally), shoulder/upper arm (pain with supination against resistance) Details: normal to inspection, normal ROM and other (minimal pain distal right biceps tendon); no tenderness, no swelling, no deformity and no unusual warmth and elbow/forearm (minimal pain at medial antecubital fossa) Details: normal ROM and distal pulses intact; no swelling Psych Appearance: grossly normal Mental Status: mental status grossly normal Thought content: Normal thought content present Insight: Good insight present (Psych) Judgement: Good judgement present (Psych) Assessment & Plan Assessment & Plan (1) Biceps strain: Comment: There is no deformity or acute pain noted on examination and imaging is deferred at this time. Patient will manage any discomfort with OTC Aleve or ibuprofen. Code(s): S46.219A - Strain of muscle, fascia and tendon of other parts of biceps, unspecified arm, initial encounter Qualifiers: Encounter type: initial encounter Laterality: right Qualified Code(s): S46.211A - Strain of muscle, fascia and tendon of other parts of biceps, right arm, initial encounter Plan: Physical therapy referral is placed and patient will follow up with PCP as needed. Orders: Orders PT Evaluation and Treatment Today S46.219A - Strain of muscle, fascia and tendon of other parts of biceps, unspecified arm, initial encounter Coding Level of Care Code Est Pt Level 3 (98359) Diagnoses Strain of right biceps, initial encounter S46.211A Encounter type: initial encounter Laterality: right Time Spent (min) 20
[2025-05-13 07:57] VITALS: BP 112/70; PULSE 61; RESP 15; TEMP 36.4; O2SAT 98; BMI 32.1
--- OUTSIDE RECORDS SUMMARY | 2025-05-13 07:58 | XMS_ITS | Data Portability ---
Author Organization [facility] Patient Home Address [address] [place] [address] Assessment No assessment recorded. Plan of Treatment Reminders Order Date Submit Date Provider Last Modified By Organization Details Last Modified Time Details Appointments None recorded. Lab None recorded. Referral None recorded. Procedures None recorded. Surgeries None recorded. Imaging XR, lumbar spine 2018 019 [facility] (Imaging), [address] [place] [address], [address], 9 08:28:10 Medication Orders naproxen 500 mg tablet 2018 019 INTERFACE [facility] [address] [place], [address], 9 11:29:01 cyclobenza emma 10 mg tablet 2018 019 INTERFACE [facility] [address] [place], [address], 9 11:29:02 diclofenac 75 mg-misopro stol 200 mcg tablet,imm ediate,del ayed release 2017 [facility] [address] [place], [address], 9 11:14:21 Patient TargetsNo targets recorded. Patient Instructions Encounter Date Encounter Id Patient Instructions Last Modified By Organization Details Last Modified Time 03/25/2018 [id number] Long discussion core strengthening and back health, demonstrated exercises-encourag e pulling back towards floor prior to sit ups, work on plank exercises instead, [employer] ruth Not available 03/25/2018 14:32:42 Reason for Referral None Reported. Results Created Date Observation Date Name Description Value Unit Range Abnormal Flag Note LastModifiedBy Organization Detail LastModifiedTime 09/04/19 19 09/01/2018 XR, lumba r spine No observ ation record ed. ruth Not Available 2018 08:51:34 Result Notes None recorded. Problems Name Problem SNOMED Code Status Onset Date Resolution Date Notes Provider Name and Address Organization Details Recorded Time Rupture of tendon of elbow 735200933 Active 018 repair Carlycyn Gutiérrez [facility] 8 08:35:12 Problem Notes None recorded. Medical Equipment None Reported. Allergies No known drug allergies Medications Name Sig Start Date Stop Date Status Note LastModified by Organization Details LastModified Time diclofenac 75 mg-misoprosto l 200 mcg tablet,immedi ate,delayed release Take 1 tablet twice a day by oral route. 09/01 completed Not Available Not Available Not Available cyclobenzapri ne 10 mg tablet Take 1 tablet every day by oral route at bedtime . active Not Available Not Available No t Available diclofenac potassium 50 mg tablet 09/01 completed Not Available Not Available Not Available naproxen 500 mg tablet Take 1 tablet twice a day by oral route. active Not Available Not Available No t Available Vitals Date Recorded Body weight Heart rate Oxygen saturation Oxygen saturation in Arterial blood by Pulse oximetry Body temperature Systolic And Diastolic Provider Name and Address Organization Details Last Updated DateTime 9 048800. 84 g 72 /min 99 % 99 % 97.9 [degF] 136/92 mm[Hg] Carly Gutiérrez [facility] 9 11:15:27 Date Recorded Body weight Heart rate Oxygen saturation Oxygen saturation in Arterial blood by Pulse oximetry Body temperature Systolic And Diastolic Provider Name and Address Organization Details Last Updated DateTime 8 156332. 28 g 91 /min 98 % 98 % 98.6 [degF] 150/80 mm[Hg] [facility] 8 14:07:27 Social History Question Answer Notes LastModified by Organizat ion Details LastModified Time Tobacco Smoking Status Never Smoker Not Available [facility] 06/[facility]/2020 03:36:24 What Was The Date Of Your Most Recent Tobacco Screening? 09/01/2018 [id number] Information not available 06/13/2020 Sex: Unknown Functional Status None recorded. Mental Status None recorded. Family History Nothing Reported. Medical History No medical history recorded. Past Encounters Encounter ID Performer Location Encounter Start Date Encounter Closed Date Diagnosis/Indication Diagnosis SNOMED-CT Code Diagnosis ICD10 Code Diagnosis IMO Codes Diagnosis Note [id number] Geovanni Abbasi [facility] [address] [facility],[place] [address] 03/25/2018 14:01:15 03/25/2018 16:33:00 Acute low back pain 039728195 M54.5 [id number] Geovanni Abbasi [facility] [address] [facility], [place] [address] 09/01/2018 11:11:13 09/01/2018 13:26:59 Acute low back pain 499164385 M54.5 rest, alt. heat & ice Health Concerns Section Related Observation LastModified by Organization Detai ls LastModified Time None Recorded Concern Status LastModified by Organization Details LastModified Time None Recorded Advance Directives Directive None Recorded Payers Insurance Date Sequence Insurance Name Policy Number Policy Schwartz Covered Member ID Schwartz Member ID Guarantor Name 05/15/2019 1 [facility] [place] Ben Reyez [id number] Ben Reyez Notes Date Note Type Note Provider Name a hi Address Organization Details Recorded Time 03/25/2018 text/html ROS as noted in the HPI Long history of low back pain Acts up every once in while This episode began 1-1/2 weeks ago- without inciting incident-except is doing more sit ups, has to pass physical exam for work including 50 situps Denies abdominal pain, no bowel/bladder changes no saddle numbness, no BRBPR or hematuria Lisandra Parekh NP, [address] [facility], [place], [address], [facility] 03/25/2018 14:33:09 09/01/2018 text/html ROS as noted in the HPI C/O left low back pain X 1 week after fall snowboarding while snowboarding, turned to right to look uphill, edge of board got caught and fell backwards, flipped over Did hit head, no LOC, was able to continue skiing No visual changes No loss bowel/bladder No leg weakness or numbness or tingling Pain a little better during sleep, as day progresses, pain increases Did recently use snowblower and shovel snow Saw chiropractor yesterday, intervention stopped 2nd pain Lisandra Parekh NP, [address] [facility], [place], [address], [facility] 09/01/2018 11:55:51
== END 2025-05-13 08:25 | disposition home or self-care (01) ==
PROVIDERS: PCP Nurse Practitioner Family; Visit Provider Physician Assistant
DX: S46.211A Strain of muscle, fascia and tendon of other parts of biceps, right arm, initial encounter (principal)

== ENCOUNTER → 2025-05-13 07:55 | Outpatient (BNVA) | payer OTHER, SELFPAY | PROVIDERS: PCP Nurse Practitioner Family; Visit Provider Physician Assistant | DX: M62.81 Muscle weakness (generalized) (principal); M25.521 Pain in right elbow; S46.211D Strain of muscle, fascia and tendon of other parts of biceps, right arm, subsequent encounter; X58.XXXD Exposure to other specified factors, subsequent encounter | CPT/HCPCS: 99212 ==

== ENCOUNTER 2025-05-31 06:56 | Outpatient (AMB) | payer OTHER, SELFPAY ==
--- OUTSIDE RECORDS SUMMARY | 2025-05-31 07:00 | XMS_ITS | Data Portability ---
Author Organization [facility] Tele[facility] Patient Home Address [address] [place] [address] Assessment No assessment recorded. Plan of Treatment Reminders Order Date Submit Date Provider Last Modified By Organization Details Last Modified Time Details Appointments None recorded. Lab None recorded. Referral None recorded. Procedures None recorded. Surgeries None recorded. Imaging XR, lumbar spine 2018 019 [facility] (Imaging), [address] [place] [address], [address], 9 08:28:10 Medication Orders naproxen 500 mg tablet 2018 019 INTERFACE [facility] [address] [place], [address], 9 11:29:01 cyclobenza emma 10 mg tablet 2018 019 INTERFACE [facility] [address] [place], [address], 9 11:29:02 diclofenac 75 mg-misopro stol 200 mcg tablet,imm ediate,del ayed release 2017 [facility] [address] [place], [address], 9 11:14:21 Patient TargetsNo targets recorded. Patient Instructions Encounter Date Encounter Id Patient Instructions Last Modified By Organization Details Last Modified Time 03/25/2018 [id number] Long discussion core strengthening and back health, demonstrated exercises-encourag e pulling back towards floor prior to sit ups, work on plank exercises instead, [employer] ruth Not available 03/25/2018 14:32:42 Reason for [...] Recorded Time Rupture of tendon of elbow 902546832 Active 018 repair Carlycyn Gutiérrez [facility] 8 08:35:12 Problem [...] Address Organization Details Last Updated DateTime 9 062827. 84 g 72 /min 99 % 99 % 97.9 [degF] 136/92 mm[Hg] Carly Gutiérrez [facility] 9 11:15:27 Date Recorded Body weight Heart rate Oxygen saturation Oxygen saturation in Arterial blood by Pulse oximetry Body temperature Systolic And Diastolic Provider Name and Address Organization Details Last Updated DateTime 8 889240. 28 g 91 /min 98 % 98 % 98.6 [degF] 150/80 mm[Hg] [facility] 8 14:07:27 Social History Question Answer Notes LastModified by Organizat ion Details LastModified Time Tobacco Smoking Status Never Smoker Not Available [facility] 06/13/2020 03:36:24 What Was The Date Of Your Most Recent Tobacco Screening? 09/01/2018 [id number] Information not available 06/13/2020 Sex: Unknown Functional Status None recorded. Mental Status None recorded. Family History Nothing Reported. Medical History No medical history recorded. Past Encounters Encounter ID Performer Location Encounter Start Date Encounter Closed Date Diagnosis/Indication Diagnosis SNOMED-CT Code Diagnosis ICD10 Code Diagnosis IMO Codes Diagnosis Note [id number] Geovanni Abbasi [facility] [address] [facility],[place] [address] 03/25/2018 14:01:15 03/25/2018 16:33:00 Acute low back pain 586136163 M54.5 [id number] Geovanni Abbasi [facility] [address] [facility], [place] [address] 09/01/2018 11:11:13 09/01/2018 13:26:59 Acute low back pain 720680860 M54.5 rest, alt. heat & ice Health Concerns Section Related Observation LastModified by Organization Detai ls LastModified Time None Recorded Concern Status LastModified by Organization Details LastModified Time None Recorded Advance Directives Directive None Recorded Payers Insurance Date Sequence Insurance Name Policy Number Policy Schwartz Covered Member ID Schwartz Member ID Guarantor Name 05/15/2019 1 [facility] [place] () Ben Reyez [id number] Ben Reyez Notes Date Note Type Note Provider Name a ne Address Organization Details Recorded Time 03/25/2018 text/html [...] or hematuria Lisandra Parekh NP, [address] [facility], [place], [address], [facility] 03/25/2018 14:33:09 09/01/2018 text/html ROS [...] 2nd pain Lisandra Parekh NP, [address] [facility], [place], [address], [facility] 09/01/2018 11:55:51
--- NOTE | 2025-05-31 07:47 | MHC.PC.OV ---
Intake Visit Reasons: anxiety Allergies No Known Allergies Allergy (Verified 04/08/25 08:50) Tobacco use date assessed: 08/21/23 Dental Screening Dental Screen Date: 08/21/23 HPI anxiety HPI Details History of Present Illness The patient is a 40-year-old male presenting with dyslipidemia, hypertension, and a depressive disorder with an anxiety component. The patient has a history of dyslipidemia and is currently on atorvastatin 20 mg. He is also managing hypertension with lisinopril 20 mg. The patient reports experiencing stress primarily related to work, although he has a supportive who is a therapist. He denies any suicidal or homicidal ideation and is working on stress management at home. Review of Systems - Psychiatric: Denies suicidal ideation or homicidal ideation. - Cardiovascular: Denies chest pain. - Respiratory: Denies shortness of breath. - Neurological: Denies headaches or blurred vision. Plan 1. Dyslipidemia The patient is currently on atorvastatin 20 mg for dyslipidemia management. Laboratory tests will be conducted to assess cholesterol levels. 2. Hypertension The patient is on lisinopril 20 mg for hypertension management. He will monitor blood pressure readings at home and report any concerns. 3. Depressive Disorder With Anxiety Component The patient is experiencing stress primarily related to work but has a supportive environment at home. He is aware of the option to seek therapy if needed and is currently discussing issues with his , who is a therapist. Discussion Notes I discussed with the patient the importance of monitoring his cholesterol and blood pressure levels. We talked about the potential need for therapy if his stress levels become unmanageable, and he is aware of the support available to him. Patient Instructions - Continue taking atorvastatin 20 mg and lisinopril 20 mg as prescribed. - Get laboratory tests done in the next couple of weeks to check cholesterol levels. - Monitor blood pressure at home and report any concerns. - Reach out if experiencing increased stress or need for additional support. [facility] Medical History (Updated 05/31/25 @ 07:47 by KADEN Galan) Cubital tunnel syndrome on left Carpal tunnel syndrome on both sides Major depressive disorder Insomnia Hypertension Surgical History H/O wrist surgery History of elbow surgery Family History Father Diabetes mellitus Mother Thyroid disorder Social History Housing: House Alcohol intake: current Alcohol intake frequency: a few times a month Alcohol type: wine Patient Tobacco Use Status: Never used Tobacco e-Cigarette/Vaping Use: Never Used Second Hand Smoke Exposure: No service: Yes Current occupational status: employed 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 Ben Ospina, Leanna Siddiqi, Nic Batista and colleagues, with an educational jolynn from [employer]. Physical exam (Primary Care) Tobacco/Smoking Status: Tobacco use Status Tobacco use date assessed 08/21/23 05/31/25 07:50 Patient Tobacco Use Status Never used Tobacco 05/31/25 07:50 e-Cigarette/Vaping Use Never Used 05/31/25 07:50 Thrive Assessment: Date of Thrive Assessment Date Thrive assessed 08/21/23 05/31/25 07:50 Telehealth Telehealth Telehealth Platform: [facility] Location of provider rendering services: practice address Location of patient: address on file Patient Identification confirmed using: Name, : Yes Telehealth method: video Patient verbally consented to treatment: Yes Patient verbally consented to billing insurance company: Yes Patient informed of any privacy concerns related to visit: Yes Minutes spent on Phone/Video with Pt.: 15 Coding Level of Care Code Tele Est Pt Level 3 (62466) Diagnoses Hypertension I10 Dyslipidemia E78.5 Stress F43.9 Major depressive disorder F32.9 Assessment & Plan Assessment & Plan (1) Hypertension: Code(s): I10 - Essential (primary) hypertension Category: Medical (2) Dyslipidemia: Code(s): E78.5 - Hyperlipidemia, unspecified Category: Medical (3) Stress: Code(s): F43.9 - Reaction to severe stress, unspecified Category: Medical (4) Major depressive disorder: Code(s): F32.9 - Major depressive disorder, single episode, unspecified Category: Medical Plan . Orders: Orders Complete Blood Count Auto Diff Today E78.5 - Hyperlipidemia, unspecified Comprehensive [place]. Panel Fast Today E78.5 - Hyperlipidemia, unspecified TSH reflex Free T4 Today E78.5 - Hyperlipidemia, unspecified UA CC w/rflx Micro + Cult Today E78.5 - Hyperlipidemia, unspecified Lipid Panel Today E78.5 - Hyperlipidemia, unspecified
== END 2025-05-31 15:37 | disposition home or self-care (01) ==
LOC: HO.HMCC 06:57
PROVIDERS: PCP Nurse Practitioner Family; Visit Provider Nurse Practitioner Family
DX: I10 Essential (primary) hypertension (principal); E78.5 Hyperlipidemia, unspecified; F43.9 Reaction to severe stress, unspecified; F32.9 Major depressive disorder, single episode, unspecified

== ENCOUNTER 2025-06-14 07:32 | Outpatient (REF) | payer OTHER, SELFPAY ==
--- OUTSIDE RECORDS SUMMARY | 2025-06-14 07:35 | XMS_ITS | Data Portability ---
Author Organization [facility], Telehealth Patient Home Address [address] [place] [address] Assessment No assessment recorded. Plan of Treatment Reminders Order Date Submit Date Provider Last Modified By Organization Details Last Modified Time Details Appointments None recorded. Lab None recorded. Referral None recorded. Procedures None recorded. Surgeries None recorded. Imaging XR, lumbar spine 2018 019 [facility] (Imaging), [address] [place] [address], [address], 9 08:28:10 Medication Orders naproxen 500 mg tablet 2018 019 INTERFACE [facility] [address] [place], [address], 9 11:29:01 cyclobenza emma 10 mg tablet 2018 019 INTERFACE [facility] [address] [place], [address], 9 11:29:02 diclofenac 75 mg-misopro stol 200 mcg tablet,imm ediate,del ayed release [facility] [address] [place], [address], 9 11:14:21 Patient TargetsNo targets recorded. Patient Instructions Encounter Date Encounter Id Patient Instructions Last Modified By Organization Details Last Modified Time 03/25/2018 [id number] Long discussion core strengthening and back health, demonstrated exercises-encourag e pulling back towards floor prior to sit ups, work on plank exercises instead, Opax ruth Not available 03/25/2018 14:32:42 Reason for [...] Recorded Time Rupture of tendon of elbow 396363659 Active 018 repair Carlycyn Gutiérrez [facility] 8 08:35:12 Problem Notes None [...] Address Organization Details Last Updated DateTime 9 661607. 84 g 72 /min 99 % 99 % 97.9 [degF] 136/92 mm[Hg] Carly Gutiérrez [facility] 9 11:15:27 Date Recorded Body weight Heart rate Oxygen saturation Oxygen saturation in Arterial blood by Pulse oximetry Body temperature Systolic And Diastolic Provider Name and Address Organization Details Last Updated DateTime 8 025625. 28 g 91 /min 98 % 98 % 98.6 [degF] 150/80 mm[Hg] [facility] 8 14:07:27 Social History Question Answer Notes LastModified by Organizat ion Details LastModified Time Tobacco Smoking Status Never Smoker Not Available [facility]/13/2020 03:36:24 What Was The Date Of Your Most Recent Tobacco Screening? 09/01/2018 [id number] Information not available 06/13/2020 Sex: Unknown Functional Status None recorded. Mental Status None recorded. Family History Nothing Reported. Medical History No medical history recorded. Past Encounters Encounter ID Performer Location Encounter Start Date Encounter Closed Date Diagnosis/Indication Diagnosis SNOMED-CT Code Diagnosis ICD10 Code Diagnosis IMO Codes Diagnosis Note [id number] Geovanni Abbasi [facility] [address] [facility],[place] [address] 03/25/2018 14:01:15 03/25/2018 16:33:00 Acute low back pain 671271529 M54.5 [id number] Geovanni Abbasi [facility] [address] [facility], [place] [address] 09/01/2018 11:11:13 09/01/2018 13:26:59 Acute low back pain 697181094 M54.5 rest, alt. heat & ice Health Concerns Section Related Observation LastModified by Organization Detai ls LastModified Time None Recorded Concern Status LastModified by Organization Details LastModified Time None Recorded Advance Directives Directive None Recorded Payers Insurance Date Sequence Insurance Name Policy Number Policy Schwartz Covered Member ID Schwartz Member ID Guarantor Name 05/15/2019 1 [facility] () Ben Reyez [id number] Ben Reyez Notes Date Note Type Note Provider Name a sc Address Organization Details Recorded Time 03/25/2018 text/html [...] or hematuria Lisandra Parekh NP, [address] [facility], [place], [address], [facility] 03/25/2018 14:33:09 09/01/2018 text/html ROS [...] 2nd pain Lisandra Parekh NP, [address] [facility], [place], [address], [facility] 09/01/2018 11:55:51
[2025-06-14 10:36] LABS: MANUAL DIFF FLAG NO
[2025-06-14 10:38] LABS: Appearance Urine Clear; Glucose Urine UA Negative (Negative); PH 7.5 (5.0-9.0); Specific Gravity - Urine 1.010 (1.005-1.025)
[2025-06-14 10:39] LABS: Hematocrit 45.3 % (42.0-52.0); Hemoglobin 15.4 g/dl (14.0-18.0); Imm Gran Abs Auto 0.05 X10*3/uL (0.00-0.03); Imm Gran Pct Auto 0.7 % (0.0-0.4); Lymphocytes Absolute Auto 2.1 X10*3/uL (1.2-4.9); Mean Corpuscular HGB Conc 34.0 g/dl (31.0-36.0); Mean Corpuscular Hemoglobin 29.3 pg (27.0-33.0); Mean Corpuscular Volume 86.1 fL (80.0-98.0); NRBC Abs Auto 0.000 X10*3/uL (0.0-0.012); NRBC Pct Auto 0.0 /100WBC (0.0-0.2); Platelet Count 216 X10*3/uL (160-400); Red Blood Count 5.26 X10*6/uL (4.60-5.80); White Blood Count 6.8 X10*3/uL (4.8-10.8)
[2025-06-14 11:16] LABS: Alanine Aminotransferase 39 U/L (0-40); Albumin Level 4.7 g/dL (3.5-5.0); Alkaline Phosphatase 74 U/L (39-117); Anion Gap 9 (12-20); Aspartate Amino Transferase 38 U/L (5-37); Blood Urea Nitrogen 15 mg/dL (9-16); Calcium 9.2 mg/dL (8.4-10.2); Carbon Dioxide 30 mmol/L (22-29); Chloride 102 mmol/L (96-108); Cholesterol 167 mg/dL (<200); Estimated Glomerular Filt Rate > 60; HDL Cholesterol 45 mg/dL (>40); Potassium 4.2 mmol/L (3.3-5.1); Sodium 137 mmol/L (135-145); Total Protein 7.4 g/dL (6.5-8.0); Triglycerides 92 mg/dL (<150)
== END 2025-06-14 07:33 | disposition home or self-care (01) ==
LOC: HO.HMGCLDS 07:32
PROVIDERS: PCP Nurse Practitioner Family; Visit Provider Nurse Practitioner Family
DX: E78.5 Hyperlipidemia, unspecified (principal)
CPT/HCPCS: 36415; 80053; 80061; 81003; 84443; 85025

== ENCOUNTER 2025-07-25 06:35 | Outpatient (AMB) | payer OTHER, SELFPAY ==
--- OUTSIDE RECORDS SUMMARY | 2025-07-25 06:39 | XMS_ITS | Data Portability ---
Author Organization [facility], Telehealth Patient Home Address [address] [place] [address] Assessment No assessment recorded. Plan of Treatment Reminders Order Date Submit Date Provider Last Modified By Organization Details Last Modified Time Details Appointments None recorded. Lab None recorded. Referral None recorded. Procedures None recorded. Surgeries None recorded. Imaging XR, lumbar spine 2018 019 [facility] (Imaging), [address] [place] [address], [address], 9 08:28:10 Medication Orders naproxen 500 mg tablet 2018 019 INTERFACE [facility] [address], [address] [place], [address], 9 11:29:01 cyclobenza emma 10 mg tablet 2018 019 INTERFACE [facility] [address], [address] [place], [address], 9 11:29:02 diclofenac 75 mg-misopro stol 200 mcg tablet,imm ediate,del ayed release 2017 [facility] [address] [place], [address], 9 11:14:21 Patient TargetsNo targets recorded. Patient Instructions Encounter Date Encounter Id Patient Instructions Last Modified By Organization Details Last Modified Time 03/25/2018 [id number] Long discussion core strengthening and back health, demonstrated exercises-encourag e pulling back towards floor prior to sit ups, work on plank exercises instead, [employer] ruth Not available 03/25/2018 14:32:42 Reason for [...] Recorded Time Rupture of tendon of elbow 619321060 Active 018 repair Carlycyn Gutiérrez [facility] Internal [facility] 8 08:35:12 Problem Notes None [...] Recorded Body weight Heart rate Oxygen saturation Body temperature Systolic And Diastolic Provider Name and Address Organization Details Last Updated DateTime 9 622120. 84 g 72 /min 99 % 97.9 [degF] 136/92 mm[Hg] Carly Gutiérrez [facility] Internal Medicine 9 11:15:27 Date Recorded Body weight Heart rate Oxygen saturation Body temperature Systolic And Diastolic Provider Name and Address Organization Details Last Updated DateTime 8 320274. 28 g 91 /min 98 % 98.6 [degF] 150/80 mm[Hg] Carly Gutiérrez [facility] Internal Medicine 8 14:07:27 Social History Question Answer Notes LastModified by Organizat ion Details LastModified Time Tobacco Smoking Status Never Smoker Not Available [facility] 06/13/2020 03:36:24 What Was The Date Of Your Most Recent Tobacco Screening? 09/01/2018 [id number] Information not available 06/13/2020 Sex: Unknown Functional Status None recorded. Mental Status None recorded. Family History Nothing Reported. Medical History No medical history recorded. Past Encounters Encounter ID Performer Location Encounter Start Date Encounter Closed Date Diagnosis/Indication Diagnosis SNOMED-CT Code Diagnosis ICD10 Code Diagnosis IMO Codes Diagnosis Note [id number] Geovanni Farrell [facility] [address] [facility],[place] [address] 03/25/2018 14:01:15 03/25/2018 16:33:00 Acute low back pain 090800406 M54.5 [id number] Geovanni Farrell [place] [address] [facility],[place] [address] 09/01/2018 11:11:13 09/01/2018 13:26:59 Acute low back pain 536262760 M54.5 rest, alt. heat & ice Health Concerns Section Related Observation LastModified by Organization Detai ls LastModified Time None Recorded Concern Status LastModified by Organization Details LastModified Time None Recorded Advance Directives Directive None Recorded Payers Insurance Date Sequence Insurance Name Policy Number Policy Schwartz Covered Member ID Schwartz Member ID Guarantor Name 05/15/2019 1 [facility] () Ben Reyez [id number] Ben Reyez Notes Date Note Type Note Provider Name a nd Address Organization Details Recorded Time 03/25/2018 text/html [...] or hematuria Lisandra Parekh NP, [address] [place], [address], [facility] 03/25/2018 14:33:09 09/01/2018 text/html [...] 2nd pain Lisandra Parekh NP, [address] [facility], [place], [address], [facility] 09/01/2018 11:55:51
--- NOTE | 2025-07-25 07:14 | MHC.PC.OV ---
Intake Visit Reasons: 2 months f/up Allergies No Known Allergies Allergy (Verified 07/25/25 07:14) Medication List - Last [facility]conc[facility]25[facility] amlodipine 2.5 mg PO DAILY atorvastatin 20 mg PO BEDTIME epinephrine 0.3 mg (0.3 mL) IM Q15M PRN lisinopril 40 mg PO DAILY Tobacco use date assessed: 08/21/23 Dental Screening Dental Screen Date: 08/21/23 HPI 2 months f/up HPI Details History of Present Illness The patient is a 40-year-old male presenting with a telehealth follow-up for hypertension, depression, and dyslipidemia. Regarding his hypertension, his systolic blood pressure is still averaging in the 140s, with diastolic readings in the 70s to low 80s. For his depression, he reports it is manageable and has noticed less frustration since his blood pressure has improved. He still has moments of frustration and is experiencing significant stress at work. He has seen a therapist in the past but does not currently wish to resume therapy or start medication currently. Concerning his dyslipidemia, the patient is on atorvastatin 20 mg. He reports he has reduced his beer intake, which has resulted in a significant drop in his LDL and total cholesterol. Review of Systems - Neurological: Denies headaches, blurred vision. - Cardiovascular: Denies chest pain. - Respiratory: Denies shortness of breath. - Psychiatric: Reports manageable depression, stress from work, and moments of frustration. Denies suicidal or homicidal ideation. Plan 1. Hypertension The patient's systolic blood pressure remains elevated in the 140s, while his diastolic is in the 70s-80s. He denies symptoms such as headaches, blurred vision, chest pain, or shortness of breath. To better control his blood pressure, amlodipine 2.5 mg will be added to his regimen. He will monitor his blood pressure and contact me in a few weeks if it remains elevated for a possible adjustment of his amlodipine. 2. Depression The patient reports his depression is manageable, with less frustration noted as his blood pressure has improved, though he still experiences moments of frustration and work-related stress. He declines to see a therapist or start medication at this time. We will continue to monitor his symptoms. He denies any suicidal or homicidal ideation. 3. Dyslipidemia The patient has shown a positive change in his cholesterol levels, with a significant drop in his LDL and total cholesterol. This improvement is attributed to reducing his beer intake. We will continue his current dose of atorvastatin 20 mg and he will continue to watch his diet. Discussion Notes I discussed with the patient his elevated blood pressure readings despite treatment, and we will add amlodipine 2.5 mg. I advised him to contact me in a few weeks for a potential dose adjustment if his blood pressure does not improve. We discussed his depression, which he feels is manageable without medication or therapy at this time, and he denies suicidal or homicidal thoughts. We will continue to monitor his mood. I reviewed his recent cholesterol labs, which showed significant improvement, and we agreed to continue the current atorvastatin 20 mg dose while he continues to watch his diet and has reduced his beer intake. I will see him for a follow-up visit in approximately two months. Patient Instructions - Start taking amlodipine 2.5 mg for your high blood pressure. - Continue taking atorvastatin 20 mg for your cholesterol. - Continue to watch your diet and limit beer intake. - Contact me in a few weeks if your blood pressure is still high so we can adjust your new medication if needed. - We will have a follow-up appointment in about 2 months. [facility] Medical History Cubital tunnel syndrome on left Carpal tunnel syndrome on both sides Major depressive disorder Insomnia Hypertension Surgical History H/O wrist surgery History of elbow surgery Family History Father Diabetes mellitus Mother Thyroid disorder Social History Housing: House Alcohol intake: current Alcohol intake frequency: a few times a month Alcohol type: wine Patient Tobacco Use Status: Never used Tobacco e-Cigarette/Vaping Use: Never Used Second Hand Smoke Exposure: No service: Yes Current occupational status: employed 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 Ben Ospina, Leanna Siddiqi, Nic Batista and colleagues, with an educational jolynn from [employer]. Physical exam (Primary Care) Tobacco/Smoking Status: Tobacco use Status Tobacco use date assessed 08/21/23 05/31/25 07:50 Patient Tobacco Use Status Never used Tobacco 05/31/25 07:50 e-Cigarette/Vaping Use Never Used 05/31/25 07:50 Thrive Assessment: Date of Thrive Assessment Date Thrive assessed 08/21/23 05/31/25 07:50 Telehealth Telehealth Telehealth Platform: [employer] Location of provider rendering services: practice address Location of patient: address on file Patient Identification confirmed using: Name, : Yes Telehealth method: video Patient verbally consented to treatment: Yes Patient verbally consented to billing insurance company: Yes Patient informed of any privacy concerns related to visit: Yes Minutes spent on Phone/Video with Pt.: 12 Coding Level of Care Code Tele Est Pt Level 3 (66528) Diagnoses Major depressive disorder F32.9 Hypertension I10 Dyslipidemia E78.5 Assessment & Plan Assessment & Plan (1) Major depressive disorder: Code(s): F32.9 - Major depressive disorder, single episode, unspecified Category: Medical (2) Hypertension: Code(s): I10 - Essential (primary) hypertension Category: Medical (3) Dyslipidemia: Code(s): E78.5 - Hyperlipidemia, unspecified Category: Medical Plan: . Plan . Medications: New amlodipine 2.5 mg PO DAILY 30 tabs 2RF
== END 2025-07-25 09:09 | disposition home or self-care (01) ==
LOC: HO.HMCC 06:35
PROVIDERS: PCP Nurse Practitioner Family; Visit Provider Nurse Practitioner Family
DX: F32.9 Major depressive disorder, single episode, unspecified (principal); I10 Essential (primary) hypertension; E78.5 Hyperlipidemia, unspecified